=== PATIENT | female | born 1950 | race Hispanic/Latino ===

== ENCOUNTER 2022-05-06 23:44 | Inpatient (IN) | payer MEDICARE ==
[2022-05-07] MEDS ORDERED: SODIUM CHLORIDE 0.9% 1000 ML 1,000 ML IV ONE ×2 (03:21→04:43)
--- NOTE | 2022-05-07 03:26 | Emergency Department Report ---
ED Altered Mental Status HPI - General Chief Complaint: Altered Mental Status Stated Complaint: ALTERED MENTAL STATUES Time Seen by Provider: 05/07/22 02:52 Source: EMS Mode of arrival: Stretcher Limitations: Altered Mental Status - History of Present Illness Initial Comments: 72-year-old female with a history of Alzheimer brought in by EMS with altered mental status that was noticed after patient was found sitting on the toilet bowl for about 7 hours covered in feces. No fever or chills reported. Patient noted to be hypotensive on presentation. No other modifying or associated factors reported. MD Complaint: altered mental status - Related Data Allergies Allergy/AdvReac Type Severity Reaction Status Date / Time No Known Allergies Allergy Verified 05/07/22 02:32 ED Review of Systems ROS: Stated complaint: ALTERED MENTAL STATUES Other details as noted in HPI Comment: All other systems reviewed and negative Constitutional: weakness Neurological: confusion, other (Altered mental status change) ED Past Medical Hx - Social History Smoking Status: Never Smoker Substance Use Type: None ED Physical Exam - General Limitations: Altered Mental Status General appearance: alert, other (Dementia) - Head Head exam: Present: atraumatic, normal inspection - Eye Eye exam: Present: normal appearance Pupils: Present: normal accommodation - ENT ENT exam: Present: normal exam, normal orophraynx, mucous membranes moist - Neck Neck exam: Present: normal inspection. Absent: tenderness - Respiratory Respiratory exam: Present: normal lung sounds bilaterally. Absent: respiratory distress, accessory muscle use - Cardiovascular Cardiovascular Exam: Present: regular rate, normal rhythm, normal heart sounds, other (Hypertension) - GI/Abdominal GI/Abdominal exam: Present: soft, normal bowel sounds. Absent: distended, tenderness - Extremities Exam Extremities exam: Absent: tenderness, pedal edema - Back Exam Back exam: Absent: tenderness - Neurological Exam Neurological exam: Present: alert, other (Demented) - Skin Skin exam: Present: warm ED Course Vital Signs 05/07/22 05/07/22 05/07/22 00:28 00:30 00:49 Temperature Pulse Rate Respiratory Rate Blood Pressure 119/88 119/88 O2 Sat by Pulse 98 Oximetry 05/07/22 05/07/22 05/07/22 01:00 01:15 01:30 Temperature Pulse Rate 92 H 90 107 H Respiratory 15 21 23 Rate Blood Pressure 84/33 79/49 O2 Sat by Pulse 97 91 95 Oximetry 05/07/22 05/07/22 05/07/22 01:35 01:46 02:00 Temperature 98 F Pulse Rate 100 H 92 H 91 H Respiratory 12 19 18 Rate Blood Pressure 89/55 83/57 83/57 O2 Sat by Pulse 100 87 Oximetry 05/07/22 05/07/22 05/07/22 02:16 02:30 02:46 Temperature Pulse Rate 98 H 100 H 97 H Respiratory 23 12 20 Rate Blood Pressure 77/53 77/53 98/66 O2 Sat by Pulse 96 Oximetry 05/07/22 05/07/22 05/07/22 03:00 03:16 03:30 Temperature Pulse Rate 95 H 95 H 98 H Respiratory 12 15 19 Rate Blood Pressure 98/66 102/66 102/66 O2 Sat by Pulse Oximetry - Lab Data Result diagrams: 05/07/22 03:40 05/07/22 03:40 Lab Results 05/07/22 05/07/22 05/07/22 Range/Units 03:40 03:40 03:40 WBC 11.6 H (4.5-11.0) K/mm3 RBC 4.19 (3.65-5.03) M/mm3 Hgb 10.8 (10.1-14.3) gm/dl Hct 33.3 (30.3-42.9) % MCV 80 (79-97) fl MCH 26 L (28-32) pg MCHC 33 (30-34) % RDW 21.2 H (13.2-15.2) % Plt Count 168 (140-440) K/mm3 Lymph % (Auto) 9.5 L (13.4-35.0) % [place] % (Auto) 5.0 (0.0-7.3) % Eos % (Auto) 0.1 (0.0-4.3) % Baso % (Auto) 0.3 (0.0-1.8) % Lymph # (Auto) 1.1 L (1.2-5.4) K/mm3 [place] # (Auto) 0.6 (0.0-0.8) K/mm3 Eos # (Auto) 0.0 (0.0-0.4) K/mm3 Baso # (Auto) 0.0 (0.0-0.1) K/mm3 Seg Neutrophils % 85.1 H (40.0-70.0) % Seg Neutrophils # 9.9 H (1.8-7.7) K/mm3 PT 17.8 H (12.2-14.9) Sec. INR 1.31 H (0.87-1.13) APTT 26.2 (24.2-36.6) Sec. Sodium 133 L (137-145) mmol/L Potassium 4.7 (3.6-5.0) mmol/L Chloride 92.0 L (98-107) mmol/L Carbon Dioxide 15 L (22-30) mmol/L Anion Gap 31 mmol/L BUN 67 H (7-17) mg/dL Creatinine 5.1 H (0.6-1.2) mg/dL Estimated GFR 8 ml/min BUN/Creatinine Ratio 13 % Glucose 105 H (65-100) mg/dL Lactic Acid (0.7-2.0) mmol/L Calcium 9.9 (8.4-10.2) mg/dL Total Bilirubin 1.00 (0.1-1.2) mg/dL AST 70 H (5-40) units/L ALT 22 (7-56) units/L Alkaline Phosphatase 96 (35-129) units/L Ammonia (25-60) umol/L Total Protein 6.6 (6.3-8.2) g/dL Albumin 3.9 (3.9-5) g/dL Albumin/Globulin Ratio 1.4 % Urine Color (Yellow) Urine Turbidity (Clear) Specific [place] (Man) (1.003-1.030) Ur Protein (Man) (Negative) mg/dL Ur Ketones (Man) (Negative) Ur Nitrite (Man) (Negative) Urine Bilirubin (Man) (Negative) Urine Ictotest (Negative) Leukocyte Esterase (Man) (Negative) Urine WBC (Auto) (0.0-6.0) /HPF Urine RBC (Auto) (0.0-6.0) /HPF U Epithel Cells (Auto) (0-13.0) /HPF Urine Bacteria (Auto) (Negative) /HPF Urine RBC (Manual) (Negative) Hyaline Casts /LPF Granular Casts /LPF Urine Mucus /HPF Urine Yeast (Budding) /HPF 05/07/22 05/07/22 05/07/22 Range/Units 03:40 03:40 04:55 WBC (4.5-11.0) K/mm3 RBC (3.65-5.03) M/mm3 Hgb (10.1-14.3) gm/dl Hct (30.3-42.9) % MCV (79-97) fl MCH (28-32) pg MCHC (30-34) % RDW (13.2-15.2) % Plt Count (140-440) K/mm3 Lymph % (Auto) (13.4-35.0) % [place] % (Auto) (0.0-7.3) % Eos % (Auto) (0.0-4.3) % Baso % (Auto) (0.0-1.8) % Lymph # (Auto) (1.2-5.4) K/mm3 [place] # (Auto) (0.0-0.8) K/mm3 Eos # (Auto) (0.0-0.4) K/mm3 Baso # (Auto) (0.0-0.1) K/mm3 Seg Neutrophils % (40.0-70.0) % Seg Neutrophils # (1.8-7.7) K/mm3 PT (12.2-14.9) Sec. INR (0.87-1.13) APTT (24.2-36.6) Sec. Sodium (137-145) mmol/L Potassium (3.6-5.0) mmol/L Chloride (98-107) mmol/L Carbon Dioxide (22-30) mmol/L Anion Gap mmol/L BUN (7-17) mg/dL Creatinine (0.6-1.2) mg/dL Estimated GFR ml/min BUN/Creatinine Ratio % Glucose (65-100) mg/dL Lactic Acid 3.30 H* (0.7-2.0) mmol/L Calcium (8.4-10.2) mg/dL Total Bilirubin (0.1-1.2) mg/dL AST (5-40) units/L ALT (7-56) units/L Alkaline Phosphatase (35-129) units/L Ammonia 17.0 L (25-60) umol/L Total Protein (6.3-8.2) g/dL Albumin (3.9-5) g/dL Albumin/Globulin Ratio % Urine Color Brown (Yellow) Urine Turbidity Slightly cloudy (Clear) Specific [place] (Man) 1.025 (1.003-1.030) Ur Protein (Man) 1+ (Negative) mg/dL Ur Ketones (Man) Negative (Negative) Ur Nitrite (Man) Negative (Negative) Urine Bilirubin (Man) Color interference (Negative) Urine Ictotest Negative (Negative) Leukocyte Esterase (Man) Negative (Negative) Urine WBC (Auto) 5.0 (0.0-6.0) /HPF Urine RBC (Auto) 7.0 (0.0-6.0) /HPF U Epithel Cells (Auto) 8.0 (0-13.0) /HPF Urine Bacteria (Auto) 1+ (Negative) /HPF Urine RBC (Manual) 1+ (Negative) Hyaline Casts 9 /LPF Granular Casts 4 /LPF Urine Mucus 2+ /HPF Urine Yeast (Budding) 3+ /HPF - Medical Decision Making Here with AMS changes this is likely as a result of some kind of infection but can not rule out other differentials such pneumonia, urinary tract infection, m yocardial infarction, cerebrovascular accident, seizure/ postictal, liver or kidney failure, or systemic infection that leads to sepsis so in order to rule out the above we will go ahead and order routine labs that includes CBC, CMP, urinalysis, CT scan of the brain, lactic acid, chest x-ray, EKG and troponin. In the meantime we will go ahead and start IV hydration considering hypotension while waiting for the above labs. Lab reviewed --and noted with elevated lactic acid with hypotension, l eukocytosis even though no sources at this point this patient is septic so will continue with the protocol-- Dr Choi the hospitalist online journalist consulted who accept pt for further evaluation and treatment-- Critical care attestation.: If time is entered above; I have spent that time in minutes in the direct care of this critically ill patient, excluding procedure time. ED Disposition Clinical Impression: AMS (altered mental status) Qualifiers: Altered mental status type: unspecified Qualified Code(s): R41.82 - Altered mental status, unspecified Hypotension Qualifiers: Hypotension type: unspecified hypotension type Qualified Code(s): I95.9 - Hypotension, unspecified Sepsis Qualifiers: Sepsis type: sepsis due to unspecified organism Sepsis acute organ dysfunction status: unspecified Qualified Code(s): A41.9 - Sepsis, unspecified organism Disposition: 09 ADMITTED INPATIENT Is pt being admited?: Yes Does the pt Need Aspirin: No Condition: Stable Time of Disposition: 05:25
--- NOTE | 2022-05-07 03:55 | XRay Report ---
CHEST 1 VIEW INDICATION / CLINICAL INFORMATION: Altered Mental Status. COMPARISON: None available. FINDINGS: SUPPORT DEVICES: None. HEART / MEDIASTINUM: Heart size is normal. Tortuous thoracic aorta. LUNGS / PLEURA: There is a 13 mm round pulmonary opacity projecting within the right upper lobe possi austyn representing a lung mass. The remainder of the lungs are clear. No pulmonary edema or pleural eff usion noted. No pneumothorax. ADDITIONAL FINDINGS: No significant additional findings. IMPRESSION: 1. Right upper lobe 1.3 cm pulmonary opacity possibly representing lung mass. Chest CT is suggested. 2. No other significant finding. Signer Name: Su Garvin MD Signed: 05/07/2022 3:50 AM Workstation Name: [id number]
[2022-05-07 03:59] LABS: Basophils % (Auto) 0.3 % (0.0-1.8); Eosinophils % (Auto) 0.1 % (0.0-4.3); Hematocrit 33.3 % (30.3-42.9); Hemoglobin 10.8 gm/dl (10.1-14.3); Lymphocytes # (Auto) 1.1 K/mm3 (1.2-5.4); Lymphocytes % (Auto) 9.5 % (13.4-35.0); Mean Corpuscular HGB Conc 33 % (30-34); Mean Corpuscular Volume 80 fl (79-97); Monocytes # (Auto) 0.6 K/mm3 (0.0-0.8); Platelet Count 168 K/mm3 (140-440); Red Blood Count 4.19 M/mm3 (3.65-5.03)
[2022-05-07 04:00] LABS: Red Cell Distribution Width 21.2 % (13.2-15.2)
[2022-05-07 04:05] LABS: INR 1.31 (0.87-1.13)
[2022-05-07 04:06] LABS: Partial Thromboplastin Time 26.2 Sec. (24.2-36.6)
[2022-05-07 04:16] LABS: Albumin 3.9 g/dL (3.9-5); Calcium 9.9 mg/dL (8.4-10.2)
--- NOTE | 2022-05-07 04:19 | Cat Scan Report ---
CT head/brain wo con INDICATION / CLINICAL INFORMATION: Altered Mental Status. TECHNIQUE: Axial CT imaging of the brain was obtained without contrast. Coronal and sagittal reformatted imaging obtained and reviewed. All CT scans at this location are performed using CT dose reduction for ALAR A by means of automated exposure control. COMPARISON: None available. FINDINGS: No intracranial hemorrhage or midline shift is noted. No extra-axial fluid collection. There is large area of edema throughout the right occipital lobe. The appearance is most suggestive o f a subacute CVA. However underlying mass with surrounding edema is not entirely excluded and further evaluation with MRI is recommended. Ventricular system and basilar cisterns are unremarkable. There is old infarct within the right thala mus as well as several lacunar infarcts throughout the right basal ganglia. Visualized paranasal sinuses and mastoid air cells are well aerated and clear. No calvarial abnormali ty. IMPRESSION: 1. Large area of edema noted throughout the right occipital lobe most likely representing subacute CV A. Edema due to underlying mass is thought to be much less likely but should be confirmed with MRI. 2. Old lacunar infarcts within the right basal ganglia and right thalamus. Signer Name: Su Garvin MD Signed: 05/07/2022 4:14 AM Workstation Name: [id number]
[2022-05-07] MEDS ORDERED: CEFEPIME/NS 2 GM/100 ML 2 GM/100 ML BAG IV ONE (04:42)
[2022-05-07 05:03] LABS: Color,Urine Brown (Yellow)
[2022-05-07 05:08] LABS: Bacteria,Urine 1+ /HPF (Negative); Granular Casts,Urine 4 /LPF; Hyaline Casts,Urine 9 /LPF; Ictotest,Urine Negative (Negative); Mucus,Urine 2+ /HPF
[2022-05-07 05:15] LABS: Amphetamine Screen,Urine PRESUMPTIVE NEGATIVE; Benzodiazepines Screen,Urine PRESUMPTIVE NEGATIVE; Cannabinoid Screen,Urine PRESUMPTIVE NEGATIVE; Cocaine Screen,Urine PRESUMPTIVE NEGATIVE; Methadone Screen,Urine PRESUMPTIVE NEGATIVE; Opiate Screen,Urine PRESUMPTIVE NEGATIVE
[2022-05-07] MEDS ORDERED: ACETAMINOPHEN 325 MG TAB PO PRN ×2 (05:25→05:31)
[2022-05-07] MEDS ORDERED: ONDANSETRON 4 MG/2 ML INJ IV PRN ×2 (05:25→05:31)
[2022-05-07] MEDS ORDERED: MORPHINE 2 MG/1 ML INJ IV PRN (05:31)
[2022-05-07] MEDS ORDERED: MORPHINE 4 MG/1 ML INJ IV PRN (05:31)
[2022-05-07] MEDS ORDERED: ALBUTEROL 2.5 MG/3 ML NEBU IH PRN (05:31)
--- NOTE | 2022-05-07 05:38 | History and Physical Report ---
History of Present Illness Date of examination: 05/07/22 Date of admission: 05/07/22 Chief complaint: Altered mental status History of present illness: 72-year-old female with a history of Alzheimer dementia and most likely chronic kidney disease was brought in by EMS with altered mental status that was noticed after patient was found sitting on the toilet bowl for about 7 hours covered in feces. No fever or chills reported. Patient noted to be hypotensive on p resentation. No other modifying or associated factors reported. In the emergency room patient is found to have BUN of 67, creatinine 5.1, lactic acid 3.30, WBC 11.6, CT scan of the head shows large area of edema noted throughout the right occipital lobe most likely representing subacute CVA. [place] a due to underlying mass is thought to be much less likely but should be confirmed with MRI. Old lacunar infarct within the right basal ganglia and right thalamus. Chest x-ray shows right upper lobe 1.3 cm pulmonary opacity possibly representing lung mass. Chest CT is suggested. Past History Past Medical History: renal failure (Allergy med dementia), other Past Surgical History: No surgical history Social history: no significant social history Family history: hypertension Medications and Allergies Allergies Allergy/AdvReac Type Severity Reaction Status Date / Time No Known Allergies Allergy Verified 05/07/22 02:32 Active Meds: Active Medications Acetaminophen (Acetaminophen 325 Mg Tab) 650 mg PO Q4H PRN PRN Reason: Pain MILD(1-3)/Fever >100.5/ROSAS Acetaminophen (Acetaminophen 325 Mg Tab) 650 mg PO Q4H PRN PRN Reason: Pain MILD(1-3)/Fever >100.5/ROSAS Albuterol (Albuterol 2.5 Mg/3 Ml Nebu) 2.5 mg IH Q3HRT PRN PRN Reason: Shortness Of Breath Albuterol/Ipratropium (Ipratropium/Albuterol Sulfate 3 Ml Ampul.Neb) 1 ampul IH Q6HRT RIKI Famotidine (Famotidine 20 Mg/2 Ml Inj) 20 mg IV BID RIKI Sodium Chloride (Nacl 0.9% 1000 Ml) 1,000 mls @ 999 mls/hr IV BOLUS ONE Stop: 05/07/22 05:43 Last Admin: 05/07/22 05:00 Dose: 999 mls/hr Sodium Chloride (Nacl 0.9% 1000 Ml) 1,000 mls @ 125 mls/hr IV DIRECT RIKI Cefepime HCl (Cefepime/Ns 2 Gm/100 Ml) 2 gm in 100 mls @ 200 mls/hr IV Q8H RIKI; Protocol Morphine Sulfate (Morphine 2 Mg/1 Ml Inj) 2 mg IV Q4H PRN PRN Reason: Pain, Moderate (4-6) Morphine Sulfate (Morphine 2 Mg/1 Ml Inj) 2 mg IV Q4H PRN PRN Reason: Pain, Moderate (4-6) Morphine Sulfate (Morphine 4 Mg/1 Ml Inj) 4 mg IV Q4H PRN PRN Reason: Pain , Severe (7-10) Ondansetron HCl (Ondansetron 4 Mg/2 Ml Inj) 4 mg IV Q8H PRN PRN Reason: Nausea And Vomiting Ondansetron HCl (Ondansetron 4 Mg/2 Ml Inj) 4 mg IV Q8H PRN PRN Reason: Nausea And Vomiting Sodium Chloride (Sodium Chloride 0.9% 10 Ml Flush Syringe) 10 ml IV BID RIKI Sodium Chloride (Sodium Chloride 0.9% 10 Ml Flush Syringe) 10 ml IV PRN PRN PRN Reason: LINE FLUSH Sodium Chloride (Sodium Chloride 0.9% 10 Ml Flush Syringe) 10 ml IV BID RIKI Sodium Chloride (Sodium Chloride 0.9% 10 Ml Flush Syringe) 10 ml IV PRN PRN PRN Reason: LINE FLUSH Review of Systems All systems: negative Constitutional: fatigue, weakness, malaise, other (Altered mental status) Exam - Constitutional Vitals: Temp Pulse Resp BP Pulse Ox 98 F 98 H 19 102/66 96 05/07/22 01:35 05/07/22 03:30 05/07/22 03:30 05/07/22 03:30 05/07/22 02:46 General appearance: Present: no acute distress, well-nourished - EENT Eyes: Present: PERRL ENT: hearing intact, clear oral mucosa - Neck Neck: Present: supple, normal ROM - Respiratory Respiratory effort: normal Respiratory: bilateral: CTA - Cardiovascular Heart Sounds: Present: S1 & S2. Absent: rub, click - Extremities Extremities: pulses symmetrical, No edema Peripheral Pulses: within normal limits - Abdominal General gastrointestinal: Present: soft, non-tender, non-distended, normal bowel sounds Female genitourinary: Present: normal - Integumentary Integumentary: Present: clear, warm, dry - Musculoskeletal Musculoskeletal: gait normal, strength equal bilaterally - Neurologic Neurologic: CNII-XII intact, moves all extremities Results - Labs CBC & Chem 7: 05/07/22 03:40 05/07/22 03:40 Labs: Laboratory Last Values WBC 11.6 K/mm3 (4.5-11.0) H 05/07/22 03:40 RBC 4.19 M/mm3 (3.65-5.03) 05/07/22 03:40 Hgb 10.8 gm/dl (10.1-14.3) 05/07/22 03:40 Hct 33.3 % (30.3-42.9) 05/07/22 03:40 MCV 80 fl (79-97) 05/07/22 03:40 MCH 26 pg (28-32) L 05/07/22 03:40 MCHC 33 % (30-34) 05/07/22 03:40 RDW 21.2 % (13.2-15.2) H 05/07/22 03:40 Plt Count 168 K/mm3 (140-440) 05/07/22 03:40 Lymph % (Auto) 9.5 % (13.4-35.0) L 05/07/22 03:40 [place] % (Auto) 5.0 % (0.0-7.3) 05/07/22 03:40 Eos % (Auto) 0.1 % (0.0-4.3) 05/07/22 03:40 Baso % (Auto) 0.3 % (0.0-1.8) 05/07/22 03:40 Lymph # (Auto) 1.1 K/mm3 (1.2-5.4) L 05/07/22 03:40 [place] # (Auto) 0.6 K/mm3 (0.0-0.8) 05/07/22 03:40 Eos # (Auto) 0.0 K/mm3 (0.0-0.4) 05/07/22 03:40 Baso # (Auto) 0.0 K/mm3 (0.0-0.1) 05/07/22 03:40 Seg Neutrophils % 85.1 % (40.0-70.0) H 05/07/22 03:40 Seg Neutrophils # 9.9 K/mm3 (1.8-7.7) H 05/07/22 03:40 PT 17.8 Sec. (12.2-14.9) H 05/07/22 03:40 INR 1.31 (0.87-1.13) H 05/07/22 03:40 APTT 26.2 Sec. (24.2-36.6) 05/07/22 03:40 Sodium 133 mmol/L (137-145) L 05/07/22 03:40 Potassium 4.7 mmol/L (3.6-5.0) 05/07/22 03:40 Chloride 92.0 mmol/L (98-107) L 05/07/22 03:40 Carbon Dioxide 15 mmol/L (22-30) L 05/07/22 03:40 Anion Gap 31 mmol/L 05/07/22 03:40 BUN 67 mg/dL (7-17) H 05/07/22 03:40 Creatinine 5.1 mg/dL (0.6-1.2) H 05/07/22 03:40 Estimated GFR 8 ml/min 05/07/22 03:40 BUN/Creatinine Ratio 13 % 05/07/22 03:40 Glucose 105 mg/dL (65-100) H 05/07/22 03:40 Lactic Acid 3.30 mmol/L (0.7-2.0) H* 05/07/22 03:40 Calcium 9.9 mg/dL (8.4-10.2) 05/07/22 03:40 Total Bilirubin 1.00 mg/dL (0.1-1.2) 05/07/22 03:40 AST 70 units/L (5-40) H 05/07/22 03:40 ALT 22 units/L (7-56) 05/07/22 03:40 Alkaline Phosphatase 96 units/L (35-129) 05/07/22 03:40 Ammonia 17.0 umol/L (25-60) L 05/07/22 03:40 Total Protein 6.6 g/dL (6.3-8.2) 05/07/22 03:40 Albumin 3.9 g/dL (3.9-5) 05/07/22 03:40 Albumin/Globulin Ratio 1.4 % 05/07/22 03:40 Urine Color Brown (Yellow) 05/07/22 04:55 Urine Turbidity Slightly cloudy (Clear) 05/07/22 04:55 Specific [place] (Man) 1.025 (1.003-1.030) 05/07/22 04:55 Ur Protein (Man) 1+ mg/dL (Negative) 05/07/22 04:55 Ur Ketones (Man) Negative (Negative) 05/07/22 04:55 Ur Nitrite (Man) Negative (Negative) 05/07/22 04:55 Urine Bilirubin (Man) Color interference (Negative) 05/07/22 04:55 Urine Ictotest Negative (Negative) 05/07/22 04:55 Leukocyte Esterase (Man) Negative (Negative) 05/07/22 04:55 Urine WBC (Auto) 5.0 /HPF (0.0-6.0) 05/07/22 04:55 Urine RBC (Auto) 7.0 /HPF (0.0-6.0) 05/07/22 04:55 U Epithel Cells (Auto) 8.0 /HPF (0-13.0) 05/07/22 04:55 Urine Bacteria (Auto) 1+ /HPF (Negative) 05/07/22 04:55 Urine RBC (Manual) 1+ (Negative) 05/07/22 04:55 Hyaline Casts 9 /LPF 05/07/22 04:55 Granular Casts 4 /LPF 05/07/22 04:55 Urine Mucus 2+ /HPF 05/07/22 04:55 Urine Yeast (Budding) 3+ /HPF 05/07/22 04:55 - Imaging and Cardiology Chest x-ray: report reviewed CT scan - chest: report reviewed Assessment and Plan VTE prophylaxis?: Mechanical Plan of care discussed with patient/family: Yes - Patient Problems (1) CVA (cerebral vascular accident) Current Visit: Yes Status: Acute Plan to address problem: Admit the patient to the medical telemetry. Aspirin 81 mg p.o. daily. Lipitor 40 mg p.o. daily. PT OT speech evaluation. MRI of the brain and MRA of the brain and neck with and without contrast. Neurology evaluation (2) Acute metabolic encephalopathy Current Visit: Yes Status: Acute Plan to address problem: Most likely secondary to CVA and FRANTZ. We will monitor the patient closely. Oxygen by nasal cannula 3 L/min. DuoNeb via nebulizer every 4 hours as needed. IV fluid normal saline at the rate of 125 cc/h. We will monitor the patient closely. Neurology evaluation (3) FRANTZ (acute kidney injury) Current Visit: Yes Status: Acute Plan to address problem: Avoid nephrotoxic drug. Renally dose medication. Normal saline at the rate of 125 cc/h. Nephrology evaluation. Recheck BMP in the morning (4) Alzheimer's dementia Current Visit: Yes Status: Acute Plan to address problem: We will monitor the patient closely. We continue the home medication aspirin 81 mg p.o. daily. Lipitor 40 mg p.o. daily. MRI of the brain. Neurology evaluati on (5) Hypotension Current Visit: Yes Status: Acute Qualifiers: Hypotension type: unspecified hypotension type Qualified Code(s): I95.9 - Hypotension, unspecified Plan to address problem: Normal saline at the rate of 125 cc/h. Cefepime 2 g IV daily. We will do the blood culture urine culture. We will monitor the patient closely (6) Sepsis Current Visit: Yes Status: Acute Qualifiers: Sepsis type: sepsis due to unspecified organism Sepsis acute organ dysfunction status: unspecified Qualified Code(s): A41.9 - Sepsis, unspecified organism Plan to address problem: Normal saline at the rate of 125 cc/h. Cefepime 2 g IV daily. We will do the blood culture urine culture. We will monitor the patient closely (7) DVT prophylaxis Current Visit: Yes Status: Acute Plan to address problem: SCD for DVT prophylaxis. Pepcid 20 mg IV every 12 hours for GI prophylaxis. Patient is a full code
[2022-05-07] MEDS ORDERED: SODIUM CHLORIDE 0.9% 1000 ML 1,000 ML IV SCH (05:45)
[2022-05-07 06:38] LABS: Chol/HDL Ratio 6.11 %
[2022-05-07] MEDS: IPRATROPIUM/ALBUTEROL SULFATE 3 ML AMPUL.NEB IH SCH ×3 (08:42→22:56)
--- NOTE | 2022-05-07 08:56 | Consultation ---
History of Present Illness Consult date: 05/07/22 Reason for Consult: CVA Chief complaint: AMS History of present illness: 72 yo female with Alzheimer's dementia, ?ckdx, who presents with acute encephalopathy (found at home, sitting on toilet bowl, covered in feces) and hypotension. NCHCT revealed possible right occipital subacute infarct and CXR revealed the possibility of a lung mass. Labs revealed mild leukocytosis with lactic acidosis and a Cr of 5.1. Past History Past Medical History: renal failure (Allergy med dementia), other (see hpi;) Past Surgical History: No surgical history Social history: no significant social history Family history: hypertension Medications and Allergies Allergies Allergy/AdvReac Type Severity Reaction Status Date / Time No Known Allergies Allergy Verified 05/07/22 02:32 Active Meds: Active Medications Acetaminophen (Acetaminophen 325 Mg Tab) 650 mg PO Q4H PRN PRN Reason: Pain MILD(1-3)/Fever >100.5/ROSAS Albuterol (Albuterol 2.5 Mg/3 Ml Nebu) 2.5 mg IH Q3HRT PRN PRN Reason: Shortness Of Breath Albuterol/Ipratropium (Ipratropium/Albuterol Sulfate 3 Ml Ampul.Neb) 1 ampul IH Q6HRT RIKI Aspirin (Aspirin 81 Mg Tab Chew) 81 mg PO QDAY RIKI Atorvastatin Calcium (Atorvastatin 40 Mg Tab) 40 mg PO QHS RIKI Famotidine (Famotidine 20 Mg/2 Ml Inj) 20 mg IV QAM RIKI Sodium Chloride (Nacl 0.9% 1000 Ml) 1,000 mls @ 125 mls/hr IV DIRECT RIKI Cefepime HCl (Cefepime/Ns 2 Gm/100 Ml) 2 gm in 100 mls @ 200 mls/hr IV Q24HR RIIK; Protocol Morphine Sulfate (Morphine 2 Mg/1 Ml Inj) 2 mg IV Q4H PRN PRN Reason: Pain, Moderate (4-6) Morphine Sulfate (Morphine 4 Mg/1 Ml Inj) 4 mg IV Q4H PRN PRN Reason: Pain , Severe (7-10) Ondansetron HCl (Ondansetron 4 Mg/2 Ml Inj) 4 mg IV Q8H PRN PRN Reason: Nausea And Vomiting Sodium Chloride (Sodium Chloride 0.9% 10 Ml Flush Syringe) 10 ml IV PRN PRN PRN Reason: LINE FLUSH Sodium Chloride (Sodium Chloride 0.9% 10 Ml Flush Syringe) 10 ml IV BID RIKI Review of Systems ROS unobtainable: due to mental status All systems: negative (as per hpi;) Physical Examination - Vital Signs Vital Signs: Vital Signs Pulse Ox 98 05/07/22 00:28 - Physical Exam Narrative exam: Gen: nad; Head: normocephalic; Eyes: right gaze deviation; no ptosis; ENT: normal vocalization; CVS: warm and well-perfused; Pulm: normal work of breathing; GI: appears non-distended; Ext: no cyanosis appreciated at distal extremities; MSkeletal: decreased ROM at right arm/leg (compared to left arm/leg) due to pain; Skin: no acute rash at distal extremities; Heme: +ecchymoses appreciated at distal extremities; Neuro: somnolent, oriented to name, not age, not month, not year, no dysarthria, ?mild aphasia (follows simple commands only), CN 2 - pt is not cooperative w/ pupillary exam; left visual field (less blink to threat compared to right; o/w pt is not cooperative); ?left visual neglect; CN 3, 4, 6 - right gaze deviation, CN 5/7 - open / close eyes spontaneously; CN 8 - hearing grossly intact, CN 9, 10 - no spontaneous cought noted, CN 11/12 - pt is not cooperative; Motor - at least 3/5 at left arm/leg; at least 2/5 right arm/leg but limited by pain; Sensory - light touch symmetric, Cerebellar/Gait - pt is not able to cooperate; NIHSS (1a.) Level of Consciousness:0 (1b.) LOC Questions: 0 (1c.) LOC Commands: 1 (2.) Best Gaze:2 (3.) Visual:1 (4.) Facial Palsy:0 (5a.) Motor Arm, Left:3 (5b.) Motor Arm, Right:3 (6a.) Motor Leg, Left:3 (6b.) Motor Leg, Right:3 (7.) Limb Ataxia:0 (8.) Sensory:0 (9.) Best Language:1 (10.) Dysarthria:0 (11.) Extinction and Inattention:2 NIHSS Total Score: 19 Results - Laboratory Findings CBC and BMP: 05/07/22 03:40 05/07/22 03:40 Abnormal Lab Findings: Abnormal Labs 05/07/22 05/07/22 05/07/22 03:40 03:40 03:40 WBC 11.6 H MCH 26 L RDW 21.2 H Lymph % (Auto) 9.5 L Lymph # (Auto) 1.1 L Seg Neutrophils % 85.1 H Seg Neutrophils # 9.9 H PT 17.8 H INR 1.31 H Sodium 133 L Chloride 92.0 L Carbon Dioxide 15 L BUN 67 H Creatinine 5.1 H Glucose 105 H Lactic Acid AST 70 H Ammonia Triglycerides Cholesterol HDL Cholesterol 05/07/22 05/07/22 05/07/22 03:40 03:40 05:50 WBC MCH RDW Lymph % (Auto) Lymph # (Auto) Seg Neutrophils % Seg Neutrophils # PT INR Sodium Chloride Carbon Dioxide BUN Creatinine Glucose Lactic Acid 3.30 H* 2.60 H* AST Ammonia 17.0 L Triglycerides Cholesterol HDL Cholesterol 05/07/22 06:00 WBC MCH RDW Lymph % (Auto) Lymph # (Auto) Seg Neutrophils % Seg Neutrophils # PT INR Sodium Chloride Carbon Dioxide BUN Creatinine Glucose Lactic Acid AST Ammonia Triglycerides 344 H Cholesterol 220 H HDL Cholesterol 36 L Assessment and Plan 72 yo female with Alzheimer's dementia, ?ckdx, who presents with acute encephalopathy (found at home, sitting on toilet bowl, covered in feces) and hypotension. NCHCT revealed possible right occipital subacute infarct and CXR revealed the possibility of a lung mass. Labs revealed mild leukocytosis with lactic acidosis and a Cr of 5.1. 1. Acute Ischemic Stroke: [ASA 325 mg PO qday, MRI Brain w/ wo contrast, MRA Head w/o contrast, CUS, TTEcho (CESAR if TTE is unremarkable, unless pt has a secondary hypercoaguable state (see #2 below), confirm LDL/TSH/Covid-19/UDS, telemetry, NIHSS q4 hours; SBP goal 160-200 mmHg and DBP 80-100 mmHg for now. Statin therapy for a goal LDL of 70, when patient passes swallow evaluation. PT/OT/ST/Swallow evaluation. Long-term risk-factor modification, including a strict diet/exercise regimen for secondary stroke prophylaxis. Stroke education prior to discharge. Followup with Stroke Neurology in 4-6 weeks. 2. Lung Mass - awaiting ct chest; if positive, concern for a secondary hypercoaguable state as contributing to the patient's stroke. 3. Acute Metabolic Encephalopathy - in the setting of acute kidney injury; r/o metabolic / toxic / infectious etiologies, per primary team. 4. Subclinical Seizure(s) - recommend EEG when admitted to the hospital; if epileptiform discharges noted, recommend keppra 500 mg iv/po bid or vimpat 50 mg iv/po bid. 5. Left Hemiparesis - pt/ot evaluation/monitoring. 6. Left Hemianopsia / Right Gaze Deviatioin - low vision OT evaluation / monitoring. 7. Right Arm / Leg Pain / ?Fall - concern is raised for a possible fall based on pain with movement of the right arm/leg; communicated to RN to let the primary attending be aware for need for a c-collar and possible trauma protocol. 8. Alzheimer's Dementia - ordered b12, tsh, thiamine, prealbumin levels Rj Ross MD Neurology [id number]
--- NOTE | 2022-05-07 09:35 | Electrocardiograph Report ---
[facility] Test Date: 2022-05-07 Test Time: 06:16:51 Pat Name: MICKI SAL Department: Room: [place] [address] Gender: F [employer] Drawer: BRIA : 1950 Requested By: EVANS SPEARS Order Number: [id number] Reading MD: Leandro Islas Measurements Intervals Rex Rate: 102 P: MN: QRS: -65 QRSD: 87 T: 14 QT: 370 QTc: 482 Interpretive Statements Atrial fibrillation Left anterior fascicular block poor r wave progression nonspecific st-t No previous ECG available for comparison Electronically Signed On 05-07-2022 9:35:19 EDT by Leandro Islas
[2022-05-07] MEDS ORDERED: CEFEPIME/NS 2 GM/100 ML 2 GM/100 ML BAG IV SCH (10:00)
[2022-05-07] MEDS: ASPIRIN 81 MG TAB CHEW PO SCH (10:39)
[2022-05-07] MEDS: FAMOTIDINE 20 MG/2 ML INJ IV SCH (10:39)
--- NOTE | 2022-05-07 11:12 | Consultation ---
History of Present Illness - Reason for Consult Consult date: 05/07/22 acute renal failure - History of Present Illness This is a 72 year old female who presents to the hospital for ev aluation of AMS. On evaluation in E.R patient found to be Hypotensive with SBP in the 70-80's and pertinent labs revealed an elevated serum creatinine of 5.1 and BUN of 67. Baseline serum creatinine unknown. CT scan of head showed edema throughout occipital lobe suggesting subacute CVA and CXR shows lung mass otherwise lungs are clear. We are being consulted for management of this patient's Severe Renal Failure. Past History Past Medical History: renal failure (Allergy med dementia), other (see hpi;) Past Surgical History: No surgical history Social history: no significant social history Family history: hypertension Medications and Allergies Allergies Allergy/AdvReac Type Severity Reaction Status Date / Time No Known Allergies Allergy Verified 05/07/22 02:32 Active Meds: Active Medications Acetaminophen (Acetaminophen 325 Mg Tab) 650 mg PO Q4H PRN PRN Reason: Pain MILD(1-3)/Fever >100.5/ROSAS Albuterol (Albuterol 2.5 Mg/3 Ml Nebu) 2.5 mg IH Q3HRT PRN PRN Reason: Shortness Of Breath Albuterol/Ipratropium (Ipratropium/Albuterol Sulfate 3 Ml Ampul.Neb) 1 ampul IH Q6HRT [facility] Last Admin: 05/07/22 08:42 Dose: 1 ampul Aspirin (Aspirin 81 Mg Tab Chew) 81 mg PO QDAY [facility] Last Admin: 05/07/22 10:39 Dose: Not Given Atorvastatin Calcium (Atorvastatin 40 Mg Tab) 40 mg PO QHS [facility] Famotidine (Famotidine 20 Mg/2 Ml Inj) 20 mg IV QAM [facility] Last Admin: 05/07/22 10:39 Dose: 20 mg Sodium Chloride (Nacl 0.9% 1000 Ml) 1,000 mls @ 125 mls/hr IV DIRECT RIKI Cefepime HCl (Cefepime/Ns 1 Gm/100 Ml) 1 gm in 100 mls @ 200 mls/hr IV Q24H RIKI; Protocol Morphine Sulfate (Morphine 2 Mg/1 Ml Inj) 2 mg IV Q4H PRN PRN Reason: Pain, Moderate (4-6) Morphine Sulfate (Morphine 4 Mg/1 Ml Inj) 4 mg IV Q4H PRN PRN Reason: Pain , Severe (7-10) Ondansetron HCl (Ondansetron 4 Mg/2 Ml Inj) 4 mg IV Q8H PRN PRN Reason: Nausea And Vomiting Sodium Chloride (Sodium Chloride 0.9% 10 Ml Flush Syringe) 10 ml IV PRN PRN PRN Reason: LINE FLUSH Sodium Chloride (Sodium Chloride 0.9% 10 Ml Flush Syringe) 10 ml IV BID RIKI Last Admin: 05/07/22 10:39 Dose: 10 ml Review of Systems ROS unobtainable: due to mental status Exam - Vital Signs Vital signs: Vital Signs Pulse Ox 98 05/07/22 00:28 - General Appearance General appearance: other (No acute distress. Awake) EENT: ATNC Neck: Present: Other (neck in cervical collar) Respiratory: Decreased Breath Sounds Heart: S1S2 Gastrointestinal: Present: normoactive bowel sounds Integumentary: warm and dry, other (has erythema areas to skin on legs) Neurologic: other (Awake but not oriented to time or place) Musculoskeletal: Present: other (No edema) Results - Lab Results 05/07/22 03:40 05/07/22 03:40 Most recent lab results Calcium 9.9 mg/dL (8.4-10.2) 05/07/22 03:40 Assessment and Plan Assessment: Severe Renal Failure secondary to prerenal etiology vs ATN Sepsis Hypotension Altered Mental Status Acidosis CVA Plan: Renal labs reviewed. Serum creatinine 5.1 with BUN 67 noted on admission Baseline serum creatinine unknown Obtain renal ultrasound to rule out obstruction Obtain urine lytes protein and eosinophils CXR-lung mass otherwise clear On NS@ 125 ml/hr Avoid nephrotoxic agents Obtain daily weights Renally dose medications Monitor I/O's daily Monitor renal function closely Plan of care reviewed by Dr. Muller
--- NOTE | 2022-05-07 11:38 | XRay Report ---
CT CERVICAL SPINE SPINE WITHOUT CONTRAST INDICATION: Fall, neck pain. TECHNIQUE: Axial imaging performed through the cervical spine without the use of contrast. Sagittal and coronal reconstructed images were also reviewed. All CT scans at this location are performed us ing CT dose reduction for ALARA by means of automated exposure control. COMPARISON: None FINDINGS: Alignment: There is poor positioning of the patient. 3 mm anterolisthesis of C4 with respect to C5 i s evident. There is 2 mm anterolisthesis of C7 with respect to T1. Bones: There is no acute osseous abnormality. Mild multilevel degenerative disc disease and facet a rthropathy is present throughout the cervical spine. C6-7 appears to be the most affected level. No c entral canal stenosis is suspected. No suspicious bony lesion. Soft tissues: Small amount of pneumomediastinum is seen near the thoracic inlet. The etiology of thi s is not clearly evident. IMPRESSION: No evidence for acute injury of the cervical spine. Moderate multilevel cervical spondylosis as described. Pneumomediastinum is identified near the thoracic inlet is uncertain origin. Consider further evaluat ion with CT chest preferably with IV contrast. LEFT FEMUR 2 VIEWS INDICATION: Pain after fall. COMPARISON: None. IMPRESSION: Osteopenia is suspected. No acute osseous or soft tissue abnormality. There is severe tricompartmental degenerative changes at the knee. LEFT ANKLE 2 VIEWS INDICATION: Pain after fall. COMPARISON: None. IMPRESSION: Osteopenia is suspected. No acute osseous abnormality or significant joint pathology. LEFT FOOT 2 VIEWS INDICATION: Pain after fall. COMPARISON: None. IMPRESSION: Osteopenia is suspected. No acute osseous injury is detected. Mild osteoarthritic terry es are noted in the midfoot. There is a small plantar spur. Signer Name: Marek Gorman Jr, MD Signed: 05/07/2022 11:34 AM Workstation Name: [id number]
--- NOTE | 2022-05-07 11:45 | Event Note ---
Date: 05/07/22 Patient seen and examined at the bedside. She is in a c-collar and currently only endorsing pain in the left leg and foot. She does not recall the events that transpired prior to admission. She lives at home with her adult son and was fully independent. Neurology has evaluated patient in recommendations noted. X-rays of the left lower extremity and CT of the cervical spine were negative for acute fracture and abnormalities. Initial CT of the head also reviewed. We will continue with further stroke work-up.
--- NOTE | 2022-05-07 16:37 | Ultrasound Report ---
ULTRASOUND RENAL INDICATION / CLINICAL INFORMATION: renal failure. COMPARISON: None available. FINDINGS: RIGHT KIDNEY: Length = 8.8 cm. - Echogenicity: Mildly echogenic. - Parenchymal Thickness: Normal. - Hydronephrosis: None. - Cyst / Mass: None. - Stones: None seen. LEFT KIDNEY: Length = 7.6 cm. - Echogenicity: Mildly echogenic. - Parenchymal Thickness: Mild thinning. - Hydronephrosis: None. - Cyst / Mass: None. - Stones: None seen. URINARY BLADDER: Partially collapsed. No significant abnormality identified. FREE FLUID: None. ADDITIONAL FINDINGS: Incidental finding of a small amount of sludge in the gallbladder. IMPRESSION: 1. No acute sonographic abnormality. 2. The kidneys measure small with findings suggestive of medical renal disease bilaterally. No eviden ce of solid renal mass or hydronephrosis. 3. Small amount of sludge noted in the gallbladder without acute abnormality. Scribed by: Veronica Durand RDMS, SRI, SARAH Scribed: 05/07/2022 3:31 PM I have reviewed the images, agree with this report, and edited this report as needed. Signer Name: Fazal Liu MD Signed: 05/07/2022 4:33 PM Workstation Name: [email or web address]
[2022-05-07] MEDS: MORPHINE 2 MG/1 ML INJ IV PRN (21:13)
[2022-05-08 06:02] LABS: Basophils % (Auto) 0.1 % (0.0-1.8); Hematocrit 29.8 % (30.3-42.9); Hemoglobin 9.7 gm/dl (10.1-14.3); Lymphocytes # (Auto) 0.7 K/mm3 (1.2-5.4); Lymphocytes % (Auto) 6.7 % (13.4-35.0); Mean Corpuscular HGB Conc 33 % (30-34); Mean Corpuscular Volume 80 fl (79-97); Monocytes # (Auto) 0.4 K/mm3 (0.0-0.8); Monocytes % (Auto) 4.1 % (0.0-7.3); Platelet Count 126 K/mm3 (140-440); Red Blood Count 3.72 M/mm3 (3.65-5.03)
[2022-05-08 06:03] LABS: Red Cell Distribution Width 21.4 % (13.2-15.2)
[2022-05-08 06:27] LABS: Calcium 9.2 mg/dL (8.4-10.2)
--- NOTE | 2022-05-08 09:33 | Progress Note ---
Assessment and Plan Assessment and plan: (1) Acute CVA (cerebral vascular accident) Current Visit: Yes Status: Acute Plan to address problem: Aspirin 81 mg p.o. daily. Lipitor 40 mg p.o. daily. PT OT speech evaluation. MRI of the brain and MRA of the brain and rest of neuro work-up Work-up so far: CT head without contrast;Large area of edema noted throughout the right occipital lobe most likely representing subacute CVA Old lacunar infarctions within the right basal ganglia and right thalamus MRI of the brainLarge acute to subacute ischemic infarct at the right [employer] distribution volume loss, chronic ischemic changes and white matter MRA; brain; Occluded right posterior cerebral artery correlates with the area of ischemia seen on MRI brain Echocardiogram Chest x-ray Renal ultrasound CT cervical spine Ankle x-ray Femur x-ra;yOsteopenia suspected no acute osseous or soft tissue abnormality severe tricompartmental degenerative changes at the knee Foot x-ray work-up so far (2) Acute metabolic encephalopathy Current Visit: Yes Status: Acute Plan to address problem: Most likely secondary to CVA and FRANTZ. We will monitor the patient closely. Oxygen by nasal cannula 3 L/min. DuoNeb via nebulizer every 4 hours as needed. IV fluid normal saline at the rate of 125 cc/h. We will monitor the patient closely. Neurology evaluation (3) FRANTZ (acute kidney injury) Current Visit: Yes Status: Acute Plan to address problem: Avoid nephrotoxic drug. Renally dose medication. Normal saline at the rate of 125 cc/h. Nephrology evaluation. Recheck BMP in the morning (4) Alzheimer's dementia Current Visit: Yes Status: Acute Plan to address problem: We will monitor the patient closely. We continue the home medication aspirin 81 mg p.o. daily. Lipitor 40 mg p.o. daily. MRI of the brain. Neurology evaluation (5) Hypotension Current Visit: Yes Status: Acute Qualifiers: Hypotension type: unspecified hypotension type Qualified Code(s): I95.9 - Hypotension, unspecified Plan to address problem: Normal saline at the rate of 125 cc/h. Cefepime 2 g IV daily. We will do the blood culture urine culture. We will monitor the patient closely (6) Sepsis Current Visit: Yes Status: Acute Qualifiers: Sepsis type: sepsis due to unspecified organism Sepsis acute organ dysfunction status: unspecified Qualified Code(s): A41.9 - Sepsis, unspecified organism Plan to address problem: Normal saline at the rate of 125 cc/h. Cefepime 2 g IV daily. We will do the blood culture urine culture. We will monitor the patient closely (7) DVT prophylaxis Current Visit: Yes Status: Acute Plan to address problem: SCD for DVT prophylaxis. Pepcid 20 mg IV every 12 hours for GI prophylaxis. Patient is a full code Closely monitor the patient and adjust management as needed Plan of care reviewed with the patient and her nurse Health Safety Specialist recommendations noted and appreciated History Interval history: I have seen and examined the patient at the bedside Patient's chart and medications reviewed Patient feels slightly better Neuro work-up is in progress Vital signs noted Hospitalist Physical - Constitutional Vitals: Temp Pulse Resp BP Pulse Ox 98.3 F 82 18 105/61 98 05/08/22 07:44 05/08/22 07:44 05/08/22 03:46 05/08/22 07:44 05/08/22 09:05 General appearance: Present: no acute distress, well-nourished - EENT Eyes: Present: PERRL, EOM intact - Neck Neck: Present: supple, normal ROM - Respiratory Respiratory: bilateral: diminished, negative: rales, rhonchi, wheezing - Cardiovascular Rhythm: regular Heart Sounds: Present: S1 & S2 - Extremities Extremities: no ischemia, No edema - Abdominal General gastrointestinal: soft, non-tender, non-distended, normal bowel sounds - Integumentary Integumentary: Present: clear, warm - Psychiatric Psychiatric: cooperative - Neurologic Neurologic: other (Acute CVA with residual weakness) Results - Labs CBC & Chem 7: 05/08/22 05:35 05/08/22 04:00 Labs: Laboratory Last Values WBC 10.6 K/mm3 (4.5-11.0) 05/08/22 05:35 RBC 3.72 M/mm3 (3.65-5.03) 05/08/22 05:35 Hgb 9.7 gm/dl (10.1-14.3) L 05/08/22 05:35 Hct 29.8 % (30.3-42.9) L 05/08/22 05:35 MCV 80 fl (79-97) 05/08/22 05:35 MCH 26 pg (28-32) L 05/08/22 05:35 MCHC 33 % (30-34) 05/08/22 05:35 RDW 21.4 % (13.2-15.2) H 05/08/22 05:35 Plt Count 126 K/mm3 (140-440) L 05/08/22 05:35 Lymph % (Auto) 6.7 % (13.4-35.0) L 05/08/22 05:35 Charlton % (Auto) 4.1 % (0.0-7.3) 05/08/22 05:35 Eos % (Auto) 0.0 % (0.0-4.3) 05/08/22 05:35 Baso % (Auto) 0.1 % (0.0-1.8) 05/08/22 05:35 Lymph # (Auto) 0.7 K/mm3 (1.2-5.4) L 05/08/22 05:35 Charlton # (Auto) 0.4 K/mm3 (0.0-0.8) 05/08/22 05:35 Eos # (Auto) 0.0 K/mm3 (0.0-0.4) 05/08/22 05:35 Baso # (Auto) 0.0 K/mm3 (0.0-0.1) 05/08/22 05:35 Seg Neutrophils % 89.1 % (40.0-70.0) H 05/08/22 05:35 Seg Neutrophils # 9.4 K/mm3 (1.8-7.7) H 05/08/22 05:35 PT 17.8 Sec. (12.2-14.9) H 05/07/22 03:40 INR 1.31 (0.87-1.13) H 05/07/22 03:40 APTT 26.2 Sec. (24.2-36.6) 05/07/22 03:40 Sodium 138 mmol/L (137-145) 05/08/22 04:00 Potassium 4.1 mmol/L (3.6-5.0) 05/08/22 04:00 Chloride 100.4 mmol/L (98-107) 05/08/22 04:00 Carbon Dioxide 10 mmol/L (22-30) L 05/08/22 04:00 Anion Gap 32 mmol/L 05/08/22 04:00 BUN 76 mg/dL (7-17) H 05/08/22 04:00 Creatinine 4.9 mg/dL (0.6-1.2) H 05/08/22 04:00 Estimated GFR 9 ml/min 05/08/22 04:00 BUN/Creatinine Ratio 16 % 05/08/22 04:00 Glucose 107 mg/dL (65-100) H 05/08/22 04:00 Lactic Acid 2.60 mmol/L (0.7-2.0) H* 05/07/22 05:50 Calcium 9.2 mg/dL (8.4-10.2) 05/08/22 04:00 Phosphorus 4.40 mg/dL (2.5-4.5) 05/08/22 04:00 Total Bilirubin 1.00 mg/dL (0.1-1.2) 05/07/22 03:40 AST 70 units/L (5-40) H 05/07/22 03:40 ALT 22 units/L (7-56) 05/07/22 03:40 Alkaline Phosphatase 96 units/L (35-129) 05/07/22 03:40 Ammonia 17.0 umol/L (25-60) L 05/07/22 03:40 Total Protein 6.6 g/dL (6.3-8.2) 05/07/22 03:40 Albumin 3.9 g/dL (3.9-5) 05/07/22 03:40 Albumin/Globulin Ratio 1.4 % 05/07/22 03:40 Prealbumin 0.121 g/L (0.200-0.400) L 05/07/22 09:53 Triglycerides 344 mg/dL (2-149) H 05/07/22 06:00 Cholesterol 220 mg/dL (50-199) H 05/07/22 06:00 LDL Cholesterol Direct 116 mg/dL (50-130) 05/07/22 06:00 HDL Cholesterol 36 mg/dL (40-59) L 05/07/22 06:00 Cholesterol/HDL Ratio 6.11 % 05/07/22 06:00 Vitamin B12 518.1 pg/mL (211-911) 05/07/22 09:53 Folate 2.86 ng/mL (7.3-26.0) L 05/07/22 09:53 TSH 1.640 mlU/mL (0.270-4.200) 05/07/22 09:53 Urine Color Brown (Yellow) 05/07/22 04:55 Urine Turbidity Slightly cloudy (Clear) 05/07/22 04:55 Specific Harvest (Man) 1.025 (1.003-1.030) 05/07/22 04:55 Ur Protein (Man) 1+ mg/dL (Negative) 05/07/22 04:55 Ur Ketones (Man) Negative (Negative) 05/07/22 04:55 Ur Nitrite (Man) Negative (Negative) 05/07/22 04:55 Urine Bilirubin (Man) Color interference (Negative) 05/07/22 04:55 Urine Ictotest Negative (Negative) 05/07/22 04:55 Leukocyte Esterase (Man) Negative (Negative) 05/07/22 04:55 Urine WBC (Auto) 5.0 /HPF (0.0-6.0) 05/07/22 04:55 Urine RBC (Auto) 7.0 /HPF (0.0-6.0) 05/07/22 04:55 U Epithel Cells (Auto) 8.0 /HPF (0-13.0) 05/07/22 04:55 Urine Bacteria (Auto) 1+ /HPF (Negative) 05/07/22 04:55 Urine RBC (Manual) 1+ (Negative) 05/07/22 04:55 Hyaline Casts 9 /LPF 05/07/22 04:55 Granular Casts 4 /LPF 05/07/22 04:55 Urine Mucus 2+ /HPF 05/07/22 04:55 Urine Yeast (Budding) 3+ /HPF 05/07/22 04:55 Urine Opiates Screen Presumptive negative 05/07/22 04:55 Urine Methadone Screen Presumptive negative 05/07/22 04:55 Ur Barbiturates Screen Presumptive negative 05/07/22 04:55 Ur Phencyclidine Scrn Presumptive negative 05/07/22 04:55 Ur Amphetamines Screen Presumptive negative 05/07/22 04:55 U Benzodiazepines Scrn Presumptive negative 05/07/22 04:55 Urine Cocaine Screen Presumptive negative 05/07/22 04:55 U Marijuana (THC) Screen Presumptive negative 05/07/22 04:55 Drugs of Abuse Note Disclamer 05/07/22 04:55 Jean/IV: Voiding Method Incontinent Active Medications - Current Medications Current Medications: Generic Name Dose Route Start Last Admin Trade Name Freq PRN Reason Stop Dose Admin Acetaminophen 650 mg 05/07/22 05:25 Acetaminophen 325 Mg Tab PO Q4H PRN Pain MILD(1-3)/Fever >100.5/ROSAS Albuterol 2.5 mg 05/07/22 05:31 Albuterol 2.5 Mg/3 Ml Nebu IH Q3HRT PRN Shortness Of Breath Aspirin 81 mg 05/07/22 10:00 05/07/22 10:39 Aspirin 81 Mg Tab Chew PO Not Given QDAY [facility] Atorvastatin Calcium 40 mg 05/07/22 22:00 05/07/22 22:00 Atorvastatin 40 Mg Tab PO Not Given QHS RIKI Famotidine 20 mg 05/07/22 10:00 05/07/22 10:39 Famotidine 20 Mg/2 Ml Inj IV 20 mg QAM RIKI Administration Sodium Chloride 1,000 mls @ 125 mls/hr 05/07/22 05:45 Nacl 0.9% 1000 Ml IV DIRECT RIKI Morphine Sulfate 2 mg 05/07/22 05:25 05/07/22 21:13 Morphine 2 Mg/1 Ml Inj IV 2 mg Q4H PRN Administration Pain, Moderate (4-6) Morphine Sulfate 4 mg 05/07/22 05:31 Morphine 4 Mg/1 Ml Inj IV Q4H PRN Pain , Severe (7-10) Ondansetron HCl 4 mg 05/07/22 05:25 Ondansetron 4 Mg/2 Ml Inj IV Q8H PRN Nausea And Vomiting Sodium Chloride 10 ml 05/07/22 05:25 Sodium Chloride 0.9% 10 Ml Flush Syringe IV PRN PRN LINE FLUSH Sodium Chloride 10 ml 05/07/22 10:00 05/07/22 21:14 Sodium Chloride 0.9% 10 Ml Flush Syringe IV 10 ml BID RIKI Administration
[2022-05-08] MEDS ORDERED: CEFEPIME/NS 1 GM/100 ML 1 GM/100 ML BAG IV SCH (10:00)
--- NOTE | 2022-05-08 11:47 | Magnetic Resonance Report ---
MRI BRAIN WITHOUT CONTRAST INDICATION / CLINICAL INFORMATION: stroke, ams, confusion. TECHNIQUE: Multisequence, multiplanar images were obtained. COMPARISON: CT head 05/07/2022 FINDINGS: CEREBRAL and CEREBELLAR HEMISPHERES: Diffusion restriction is identified throughout the right SWEET GOODS MACHINE OPERATOR dis tribution including the posteromedial right temporal lobe and medial right occipital lobe as well as a 1.5 cm area of diffusion restriction in the posterolateral right thalamus. No additional areas of d iffusion restriction are identified. There is no evidence for hemorrhage, mass or mass effect. There is moderate diffuse cortical volume loss. Mild to moderate chronic microangiopathy findings are noted in the white matter. No large chronic infarct. No extra-axial fluid collection. The posterior fossa and contents are unremarkable. VENTRICLES: Normal in size and configuration for age. VISUALIZED ORBITS: No significant abnormality. VISUALIZED PARANASAL SINUSES: No significant abnormality. ADDITIONAL FINDINGS: None. IMPRESSION: Large acute to subacute ischemic infarct at the right SWEET GOODS MACHINE OPERATOR distribution. Volume loss. Chronic ischemic changes in the white matter. MRA HEAD WITHOUT CONTRAST INDICATION / CLINICAL INFORMATION: 72 years Female; stroke, ams, confusion. TECHNIQUE: 3-D time of flight. NASCET type criteria used to evaluate stenoses. COMPARISON: None available. FINDINGS: INTERNAL CAROTID ARTERIES: No significant narrowing appreciated. VERTEBROBASILAR SYSTEM: No significant narrowing appreciated. DISTAL BRANCHES: The right posterior cerebral artery is occluded at or very near its origin. Distal b ranches of the anterior, middle, and left posterior cerebral artery are fairly symmetric in appearanc e and number. ANEURYSM: None identified. IMPRESSION: Occluded right posterior cerebral artery. This correlates with the area of ischemia seen on MRI brain . Signer Name: Marek Gorman Jr, MD Signed: 05/08/2022 11:43 AM Workstation Name: [id number]
--- NOTE | 2022-05-08 11:47 | Magnetic Resonance Report ---
MRI BRAIN WITHOUT CONTRAST INDICATION / CLINICAL INFORMATION: stroke, ams, confusion. TECHNIQUE: Multisequence, multiplanar images were obtained. COMPARISON: CT head 05/07/2022 FINDINGS: CEREBRAL and CEREBELLAR HEMISPHERES: Diffusion restriction is identified throughout the right DIRECTOR EDUCATION dis tribution including the posteromedial right temporal lobe and medial right occipital lobe as well as a 1.5 cm area of diffusion restriction in the posterolateral right thalamus. No additional areas of d iffusion restriction are identified. There is no evidence for hemorrhage, mass or mass effect. There is moderate diffuse cortical volume loss. Mild to moderate chronic microangiopathy findings are noted in the white matter. No large chronic infarct. No extra-axial fluid collection. The posterior fossa and contents are unremarkable. VENTRICLES: Normal in size and configuration for age. VISUALIZED ORBITS: No significant abnormality. VISUALIZED PARANASAL SINUSES: No significant abnormality. ADDITIONAL FINDINGS: None. IMPRESSION: Large acute to subacute ischemic infarct at the right DIRECTOR EDUCATION distribution. Volume loss. Chronic ischemic changes in the white matter. MRA HEAD WITHOUT CONTRAST INDICATION / CLINICAL INFORMATION: 72 years Female; stroke, ams, confusion. TECHNIQUE: 3-D time of flight. NASCET type criteria used to evaluate stenoses. COMPARISON: None available. FINDINGS: INTERNAL CAROTID ARTERIES: No significant narrowing appreciated. VERTEBROBASILAR SYSTEM: No significant narrowing appreciated. DISTAL BRANCHES: The right posterior cerebral artery is occluded at or very near its origin. Distal b ranches of the anterior, middle, and left posterior cerebral artery are fairly symmetric in appearanc e and number. ANEURYSM: None identified. IMPRESSION: Occluded right posterior cerebral artery. This correlates with the area of ischemia seen on MRI brain . Signer Name: Marek Gorman Jr, MD Signed: 05/08/2022 11:43 AM Workstation Name: [id number]
[2022-05-08] MEDS: ASPIRIN 81 MG TAB CHEW PO SCH (12:20)
[2022-05-08] MEDS: FAMOTIDINE 20 MG/2 ML INJ IV SCH (12:21)
--- NOTE | 2022-05-08 12:34 | Progress Note ---
Assessment and Plan Assessment: Severe Renal Failure secondary to prerenal etiology vs ATN vs CKD stage 5 Sepsis Hypotension Altered Mental Status Acidosis CVA Plan: Renal labs reviewed. Serum creatinine 4.9 today, yesterday's was 5.1, No UOP recorded Baseline serum creatinine unknown Renal ultrasound reviewed- Medical renal disease. No hydronephrosis. Urine lytes protein and eosinophils-pending collection CXR-lung mass otherwise clear Has NS@ 125 ml/hr ordered, RN states patient did receive IVF overnight, but IVF was not infusing this morning due to patient pulling out her IV line. RN states she is calling IV team to get an new IV line placed. Will reduce IVF rate to 75 ml/hr when it is resumed since not making urine so far Given patient's severe renal failure and low UOP, I have spoken to patient's son who lives in [place], [place]- Mr Taz Diaz ([phone]) to discuss his mother's advanced renal failure and reviewed her labs with him. We also discussed that if his mother's renal function and UOP does not show any significant improvement by tomorrow morning we will likely recommend hemodialysis initiation. I reviewed risks and benefits of hemodialysis. He states he will be driving to [place] and is coming to see his mother tomorrow morning and will consent to hemodialysis tomorrow morning if it is needed. He states his mother had kidney failure in 2018 but not sure to what extent and if any follow- ups were done. Avoid nephrotoxic agents Obtain daily weights Renally dose medications Monitor I/O's daily Monitor renal function closely No urgent indication for HD today Plan of care reviewed by Dr. Muller Subjective Date of service: 05/08/22 Principal diagnosis: 05/08/2022 Interval history: Patient seen lying in bed. Remains confused. No IVF fluids running. Patient pulled out her IV line this morning. Nurse plans to call IV team to place new INT. Spoke with patient's son Taz Diaz who lives in [place], states he will be coming down tomorrow to see his mother. Discussed with him that patient may need hemodialysis initiation tomorrow if no significant improvement in renal funct ion. States his mother had kidney failure in 2018 but doesn't; know anything else about it. Objective - Vital Signs Vital signs: Vital Signs - 12hr 05/08/22 05/08/22 05/08/22 03:46 07:44 09:05 Temperature 97.5 F L 98.3 F Pulse Rate 82 Respiratory 18 Rate Blood Pressure 97/60 105/61 O2 Sat by Pulse 80 L 98 Oximetry - General Appearance General appearance: other (No acute distress) EENT: ATNC Neck: no JVD, supple Respiratory: Present: Decreased Breath Sounds Cardiology: S1S2 Gastrointestinal: normoactive bowel sounds Integumentary: warm and dry Neurologic: other (Confused) Musculoskeletal: other (No edema) - Lab 05/08/22 05:35 05/08/22 04:00 Most recent lab results Calcium 9.2 mg/dL (8.4-10.2) 05/08/22 04:00 Phosphorus 4.40 mg/dL (2.5-4.5) 05/08/22 04:00 Medications & Allergies - Medications Allergies/Adverse Reactions: Allergies No Known Allergies Allergy (Verified 05/07/22 02:32) Active Medications: Generic Name Dose Route Start Last Admin Trade Name Freq PRN Reason Stop Dose Admin Acetaminophen 650 mg 05/07/22 05:25 Acetaminophen 325 Mg Tab PO Q4H PRN Pain MILD(1-3)/Fever >100.5/ROSAS Albuterol 2.5 mg 05/07/22 05:31 Albuterol 2.5 Mg/3 Ml Nebu IH Q3HRT PRN Shortness Of Breath Aspirin 81 mg 05/07/22 10:00 05/08/22 12:20 Aspirin 81 Mg Tab Chew PO Not Given QDAY [facility] Atorvastatin Calcium 40 mg 05/07/22 22:00 05/07/22 22:00 Atorvastatin 40 Mg Tab PO Not Given QHS [facility] Famotidine 20 mg 05/07/22 10:00 05/08/22 12:21 Famotidine 20 Mg/2 Ml Inj IV Not Given QAM [facility] Sodium Chloride 1,000 mls @ 125 mls/hr 05/07/22 05:45 Nacl 0.9% 1000 Ml IV DIRECT RIKI Morphine Sulfate 2 mg 05/07/22 05:25 05/07/22 21:13 Morphine 2 Mg/1 Ml Inj IV 2 mg Q4H PRN Administration Pain, Moderate (4-6) Morphine Sulfate 4 mg 05/07/22 05:31 Morphine 4 Mg/1 Ml Inj IV Q4H PRN Pain , Severe (7-10) Ondansetron HCl 4 mg 05/07/22 05:25 Ondansetron 4 Mg/2 Ml Inj IV Q8H PRN Nausea And Vomiting Sodium Chloride 10 ml 05/07/22 05:25 Sodium Chloride 0.9% 10 Ml Flush Syringe IV PRN PRN LINE FLUSH Sodium Chloride 10 ml 05/07/22 10:00 05/08/22 12:21 Sodium Chloride 0.9% 10 Ml Flush Syringe IV Not Given BID RIKI
[2022-05-08] MEDS ORDERED: ASPIRIN 300 MG RECT SUPP PR SCH (21:00)
[2022-05-09] MEDS ORDERED: SIMPLE SYRUP 15 ML FEEDTUBE PRN ×2 (08:00)
[2022-05-09] MEDS ORDERED: SODIUM BICARBONATE 325 MG TAB FEEDTUBE PRN (08:00)
[2022-05-09] MEDS ORDERED: LIPASE 10,500/PROTEASE 25,000/AMYLASE 43,750 (UNITS) DR CAP FEEDTUBE PRN (08:00)
[2022-05-09 08:10] LABS: Hepatitis B Surface Antigen Non-Reactive (Negative); Hepatitis C Virus Antibody Non-Reactive (NonReactive)
--- NOTE | 2022-05-09 08:13 | Progress Note ---
Assessment and Plan Assessment and plan: --Patient failed swallow evaluation, pending speech and swallow eval Meanwhile patient needs medications, diet, will place Dobbhoff for medications and tube feeding -- Patient unable to urinate by pure wick/place Jean catheter, input output monitoring Urine analysis and urine cultures --Acute CVA (cerebral vascular accident) large acute right MANAGER OF PRODUCTION distribution CVA Aspirin 81 mg p.o. daily. Lipitor 40 mg p.o. daily. Failed speech and swallow evaluation Numerous attempts to place Dobbhoff, unsuccessful Work-up so far: CT head without contrast;Large area of edema noted throughout the right occipital lobe most likely representing subacute CVA Old lacunar infarctions within the right basal ganglia and right thalamus MRI of the brainLarge acute to subacute ischemic infarct at the right MANAGER OF PRODUCTION distribution volume loss, chronic ischemic changes and white matter MRA; brain; Occluded right posterior cerebral artery correlates with the area of ischemia seen on MRI brain Echocardiogram; EF 50-55 percent, no PFO Chest x-ray;Right upper lobe 1.3 cm pulmonary opacity possibly representing lung mass CT chest requested Renal ultrasound; CT cervical spine: no acute injury moderate multilevel cervical spondylosis pneumomediastinum small amount CT chest requested Left femur no acute abnormality, osteopenia left ankle; no abnormality osteopenia Left foot no acute abnormality osteopenia --Acute metabolic encephalopathy Most likely secondary to CVA and FRANTZ. We will monitor the patient closely. Oxygen by nasal cannula 3 L/min. DuoNeb via nebulizer every 4 hours as needed. IV fluid normal saline at the rate of 125 cc/h. We will monitor the patient closely. Neurology evaluation -- FRANTZ (acute kidney injury) Avoid nephrotoxic drug. Renally dose medication. Normal saline at the rate of 125 cc/h. Nephrology evaluation. Recheck BMP in the morning --Severe metabolic acidosis Management per nephrology Continue bicarb drip - Alzheimer's dementia -- We will monitor the patient closely. Supportive care MRI of the brain. Neurology evaluation --- Hypotension/borderline Normal saline at the rate of 125 cc/h. Blood pressures improved, normal range --Right lung mass; incidental right upper lobe 1.[address] chest requested. Consult pulmonary if needed - Sepsis; Probably UTI Normal saline at the rate of 125 cc/h. Cefepime 2 g IV daily. Follow cultures --DVT prophylaxis SCD for DVT prophylaxis. Pepcid 20 mg IV every 12 hours for GI prophylaxis. Patient is a full code --full code: Closely monitor the patient and adjust management as needed Plan of care reviewed with the patient and her nurse Protection Mgr recommendations noted and appreciated Patient is critically ill, I discussed in detail extensively with patient's son Mr. Joe Mcghee at the bedside Patient's seizures condition, tests and reports, treatment plan, very poor prognosis in view of large stroke And worsening renal function pending hemodialysis, altered level of consciousness, metabolic acidosis Had many questions I answered all of them, verbalized understanding Total critical care time 62 minutes The high probability of a clinically significant, sudden or life threatening deterioration of the [multi] system(s) required my full and direct attention, intervention and personal management. The aggregate critical care time was [62] minutes. This time is in addition to time spent performing reported procedures but includes the following: [x] Data Review and interpretation [x] Patient assessment and monitoring of vital signs [x] Documentation [x] Medication orders and management History Interval history: I have seen and examined the patient at the bedside this morning Patient's chart and medications reviewed Patient is dehydrated, cachectic and confused Noncommunicative with mild agitation Nurse reports that patient did not have any urine in pure wick In mild distress, vital signs noted Hospitalist Physical - Constitutional Vitals: Temp Pulse Resp BP Pulse Ox 97.3 F L 89 18 101/66 100 05/09/22 04:15 05/09/22 04:00 05/09/22 04:15 05/09/22 04:15 05/09/22 04:15 General appearance: Present: mild distress, cachectic (Noncommunicative, mild agitation), other - EENT ENT: other (Oral mucosa dry) - Neck Neck: Present: supple, normal ROM - Respiratory Respiratory: bilateral: diminished, negative: rales, rhonchi, wheezing - Cardiovascular Rhythm: regular Heart Sounds: Present: S1 & S2 - Extremities Extremities: no ischemia, No edema - Abdominal General gastrointestinal: soft, non-tender, non-distended, normal bowel sounds - Integumentary Integumentary: Present: clear, warm - Psychiatric Psychiatric: other (Noncommunicative) - Neurologic Neurologic: other (Acute CVA with residual weakness, unable to assess) Results - Labs CBC & Chem 7: 05/08/22 05:35 05/10/22 04:34 Labs: Laboratory Last Values WBC 10.6 K/mm3 (4.5-11.0) 05/08/22 05:35 RBC 3.72 M/mm3 (3.65-5.03) 05/08/22 05:35 Hgb 9.7 gm/dl (10.1-14.3) L 05/08/22 05:35 Hct 29.8 % (30.3-42.9) L 05/08/22 05:35 MCV 80 fl (79-97) 05/08/22 05:35 MCH 26 pg (28-32) L 05/08/22 05:35 MCHC 33 % (30-34) 05/08/22 05:35 RDW 21.4 % (13.2-15.2) H 05/08/22 05:35 Plt Count 126 K/mm3 (140-440) L 05/08/22 05:35 Lymph % (Auto) 6.7 % (13.4-35.0) L 05/08/22 05:35 Custer % (Auto) 4.1 % (0.0-7.3) 05/08/22 05:35 Eos % (Auto) 0.0 % (0.0-4.3) 05/08/22 05:35 Baso % (Auto) 0.1 % (0.0-1.8) 05/08/22 05:35 Lymph # (Auto) 0.7 K/mm3 (1.2-5.4) L 05/08/22 05:35 Custer # (Auto) 0.4 K/mm3 (0.0-0.8) 05/08/22 05:35 Eos # (Auto) 0.0 K/mm3 (0.0-0.4) 05/08/22 05:35 Baso # (Auto) 0.0 K/mm3 (0.0-0.1) 05/08/22 05:35 Seg Neutrophils % 89.1 % (40.0-70.0) H 05/08/22 05:35 Seg Neutrophils # 9.4 K/mm3 (1.8-7.7) H 05/08/22 05:35 PT 17.8 Sec. (12.2-14.9) H 05/07/22 03:40 INR 1.31 (0.87-1.13) H 05/07/22 03:40 APTT 26.2 Sec. (24.2-36.6) 05/07/22 03:40 Sodium 138 mmol/L (137-145) 05/08/22 04:00 Potassium 4.1 mmol/L (3.6-5.0) 05/08/22 04:00 Chloride 100.4 mmol/L (98-107) 05/08/22 04:00 Carbon Dioxide 10 mmol/L (22-30) L 05/08/22 04:00 Anion Gap 32 mmol/L 05/08/22 04:00 BUN 76 mg/dL (7-17) H 05/08/22 04:00 Creatinine 4.9 mg/dL (0.6-1.2) H 05/08/22 04:00 Estimated GFR 9 ml/min 05/08/22 04:00 BUN/Creatinine Ratio 16 % 05/08/22 04:00 Glucose 107 mg/dL (65-100) H 05/08/22 04:00 Lactic Acid 2.60 mmol/L (0.7-2.0) H* 05/07/22 05:50 Calcium 9.2 mg/dL (8.4-10.2) 05/08/22 04:00 Phosphorus 4.40 mg/dL (2.5-4.5) 05/08/22 04:00 Total Bilirubin 1.00 mg/dL (0.1-1.2) 05/07/22 03:40 AST 70 units/L (5-40) H 05/07/22 03:40 ALT 22 units/L (7-56) 05/07/22 03:40 Alkaline Phosphatase 96 units/L (35-129) 05/07/22 03:40 Ammonia 17.0 umol/L (25-60) L 05/07/22 03:40 Total Protein 6.6 g/dL (6.3-8.2) 05/07/22 03:40 Albumin 3.9 g/dL (3.9-5) 05/07/22 03:40 Albumin/Globulin Ratio 1.4 % 05/07/22 03:40 Prealbumin 0.121 g/L (0.200-0.400) L 05/07/22 09:53 Triglycerides 344 mg/dL (2-149) H 05/07/22 06:00 Cholesterol 220 mg/dL (50-199) H 05/07/22 06:00 LDL Cholesterol Direct 116 mg/dL (50-130) 05/07/22 06:00 HDL Cholesterol 36 mg/dL (40-59) L 05/07/22 06:00 Cholesterol/HDL Ratio 6.11 % 05/07/22 06:00 Vitamin B12 518.1 pg/mL (211-911) 05/07/22 09:53 Folate 2.86 ng/mL (7.3-26.0) L 05/07/22 09:53 TSH 1.640 mlU/mL (0.270-4.200) 05/07/22 09:53 Urine Color Brown (Yellow) 05/07/22 04:55 Urine Turbidity Slightly cloudy (Clear) 05/07/22 04:55 Specific Atkins (Man) 1.025 (1.003-1.030) 05/07/22 04:55 Ur Protein (Man) 1+ mg/dL (Negative) 05/07/22 04:55 Ur Ketones (Man) Negative (Negative) 05/07/22 04:55 Ur Nitrite (Man) Negative (Negative) 05/07/22 04:55 Urine Bilirubin (Man) Color interference (Negative) 05/07/22 04:55 Urine Ictotest Negative (Negative) 05/07/22 04:55 Leukocyte Esterase (Man) Negative (Negative) 05/07/22 04:55 Urine WBC (Auto) 5.0 /HPF (0.0-6.0) 05/07/22 04:55 Urine RBC (Auto) 7.0 /HPF (0.0-6.0) 05/07/22 04:55 U Epithel Cells (Auto) 8.0 /HPF (0-13.0) 05/07/22 04:55 Urine Bacteria (Auto) 1+ /HPF (Negative) 05/07/22 04:55 Urine RBC (Manual) 1+ (Negative) 05/07/22 04:55 Hyaline Casts 9 /LPF 05/07/22 04:55 Granular Casts 4 /LPF 05/07/22 04:55 Urine Mucus 2+ /HPF 05/07/22 04:55 Urine Yeast (Budding) 3+ /HPF 05/07/22 04:55 Urine Opiates Screen Presumptive negative 05/07/22 04:55 Urine Methadone Screen Presumptive negative 05/07/22 04:55 Ur Barbiturates Screen Presumptive negative 05/07/22 04:55 Ur Phencyclidine Scrn Presumptive negative 05/07/22 04:55 Ur Amphetamines Screen Presumptive negative 05/07/22 04:55 U Benzodiazepines Scrn Presumptive negative 05/07/22 04:55 Urine Cocaine Screen Presumptive negative 05/07/22 04:55 U Marijuana (THC) Screen Presumptive negative 05/07/22 04:55 Drugs of Abuse Note Disclamer 05/07/22 04:55 Jean/IV: Voiding Method Incontinent Active Medications - Current Medications Current Medications: Generic Name Dose Route Start Last Admin Trade Name Freq PRN Reason Stop Dose Admin Acetaminophen 650 mg 05/07/22 05:25 Acetaminophen 325 Mg Tab PO Q4H PRN Pain MILD(1-3)/Fever >100.5/ROSAS Albuterol 2.5 mg 05/07/22 05:31 Albuterol 2.5 Mg/3 Ml Nebu IH Q3HRT PRN Shortness Of Breath Lipase/Protease/Amylase 1 each 05/09/22 08:00 Lipase 10,500/Protease 25,000/Amylase 43,750 (Units) Dr Dunne FEEDTUBE PRN PRN For Clogged Feeding Tube Aspirin 300 mg 05/08/22 21:00 05/08/22 21:20 Aspirin 300 Mg Rect Supp DC 300 mg QDAY RIKI Administration Atorvastatin Calcium 40 mg 05/07/22 22:00 05/08/22 21:23 Atorvastatin 40 Mg Tab PO Not Given QHS RIKI Famotidine 20 mg 05/07/22 10:00 05/08/22 12:21 Famotidine 20 Mg/2 Ml Inj IV Not Given QAM RIKI Sodium Chloride 1,000 mls @ 75 mls/hr 05/07/22 05:45 05/08/22 21:28 Nacl 0.9% 1000 Ml IV 75 mls/hr DIRECT RIKI Administration Morphine Sulfate 2 mg 05/07/22 05:25 05/07/22 21:13 Morphine 2 Mg/1 Ml Inj IV 2 mg Q4H PRN Administration Pain, Moderate (4-6) Morphine Sulfate 4 mg 05/07/22 05:31 Morphine 4 Mg/1 Ml Inj IV Q4H PRN Pain , Severe (7-10) Ondansetron HCl 4 mg 05/07/22 05:25 Ondansetron 4 Mg/2 Ml Inj IV Q8H PRN Nausea And Vomiting Simple Syrup 15 ml 05/09/22 08:00 Simple Syrup 15 Ml FEEDTUBE PRN PRN Hypoglycemia Simple Syrup 30 ml 05/09/22 08:00 Simple Syrup 15 Ml FEEDTUBE PRN PRN Hypoglycemia Sodium Bicarbonate 325 mg 05/09/22 08:00 Sodium Bicarbonate 325 Mg Tab FEEDTUBE PRN PRN For Clogged Feeding Tube Sodium Chloride 10 ml 05/07/22 05:25 Sodium Chloride 0.9% 10 Ml Flush Syringe IV PRN PRN LINE FLUSH Sodium Chloride 10 ml 05/07/22 10:00 05/08/22 21:19 Sodium Chloride 0.9% 10 Ml Flush Syringe IV 10 ml BID RIKI Administration Nutrition/Malnutrition Assess - Dietary Evaluation Nutrition/Malnutrition Findings: Nutrition Notes Start: 05/08/22 15:56 Freq: Status: Active Protocol: Document 05/08/22 15:56 AIMEE (Rec: 05/08/22 16:36 AIMEE [id number]) Nutrition Notes 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 Current Diet NPO (since 05/07 10:41). Labs/Tests 05/08: CO2 10, BUN 76, Crea 4. 9, Glu 107. Pertinent Medications 05/08: Nutritionally unremarkable. Height 5 ft 4 in Weight 56.3 kg Deport Body Weight (kg) 54.54 BMI 21.3 Intake Prior to Admission Poor Weight change and time frame Pt denies having loss body weight [place]. Weight Status Appropriate Subjective/Other Information RD consult for skin risk assessment. Pt is currently on NPO. I recommend start with TF, when MD considers pertinent, to provide Pt with energy/ protein needs during LOS. Pt is on Room Air, O2 saturation @ 98%, according to Oxigen Delivery Assessment notes. Pt has missing teeth, according to Physical Assessment History notes. Pt is incontinent, according to Physical Assessment History notes. Bedside swallow assessment failed on 05/07, according to Swallow Screen notes. Pt shows no signs of concern for skin risk at the time, according to Physical Assessment History notes. Percent of energy/protein needs met: Pt is currently on NPO. When pertinent, start with prescribed TF-Nepro w/ CARBSTEADY @ 35 ml/hr provides for energy/protein needs (1, 495 Kcal/67 g) during LOS, 102 % Kcal; 100% AA. Burn Absent Trauma Absent GI Symptoms Other Difficulty In Swallowing Food Allergy No Skin Integrity/Comment Assessment WNL. Current % PO Other Minimum of two criteria No Fluid Accumulation N/A Reduced Flamer After Lasting Strength N/A (non-severe) Protein-Calorie Malnutrition N\A #1 Nutrition Diagnosis Swallowing difficulty Etiology Possibly secondary to Hx of CVA. As Evidenced by Signs and Symptoms Bedside swallow assessment failed on 05/07, according to Swallow Screen notes. Is patient on ventilator? No Is Patient Ambulatory and/or Out of Bed No REE-([facility]-confined to bed) 1275.840 Kcal/Kg value to use for calculation 26 Approximate Energy Requirements Using 1464 kcal/Kg Calculation Used for Recommendations Kcal/kg Additional Notes Protein: 0.8-1.2 g/Kg ABW; 45- 67 g/day. Fluids: 1 ml/Kcal, or as per MD. Nutrition Intervention Nutrition Support: When pertinent, start TF-Nepro w/CARBSTEADY @ 35 ml/hr. Flush: 140 ml water Q 4 hr, or as per MD. Kcal 1,495 Protein (gm) 67 Carbohydrates (gm) 134 Fat (gm) 80 Fluid (mL) 604 Fiber (gm) 10 % RDI: 102% Kcal; 100% AA. Goal #1 Provide at least 75% of energy /protein needs through Enteral Feeding during LOS. Follow-Up By: 05/10/22 Additional Comments When pertinent, start monitoring TF tolerance, HD initiation, and BM.
--- NOTE | 2022-05-09 10:06 | Progress Note ---
Assessment and Plan Severe Renal Failure secondary to prerenal etiology vs ATN vs CKD stage 5 Sepsis Hypotension Altered Mental Status Acidosis CVA Plan: STAT BMP ordered no UOP was recorded, campbell ordered will check VBG will change IVF to sodium bicarb Baseline serum creatinine unknown Renal ultrasound reviewed- Medical renal disease. No hydronephrosis. Urine lytes protein and eosinophils-pending collection CXR-lung mass otherwise clear may need to be started on HD today, discussed with son, agreed if needed. Avoid nephrotoxic agents Obtain daily weights Renally dose medications Monitor I/O's daily Monitor renal function closely Subjective Date of service: 05/09/22 Principal diagnosis: 05/08/2022 Interval history: comfortable, confused. Objective - Vital Signs Vital signs: Vital Signs - 12hr 05/08/22 05/09/22 05/09/22 23:28 04:00 04:15 Temperature 97.8 F 97.3 F L Pulse Rate 92 H 89 Respiratory 18 18 Rate Blood Pressure 107/71 101/66 O2 Sat by Pulse 88 100 Oximetry 05/09/22 07:57 Temperature 98.2 F Pulse Rate 87 Respiratory Rate Blood Pressure 104/69 O2 Sat by Pulse 100 Oximetry - Lab 05/08/22 05:35 05/08/22 04:00 Most recent lab results Calcium 9.2 mg/dL (8.4-10.2) 05/08/22 04:00 Phosphorus 4.40 mg/dL (2.5-4.5) 05/08/22 04:00 Medications & Allergies - Medications Allergies/Adverse Reactions: Allergies No Known Allergies Allergy (Verified 05/07/22 02:32) Active Medications: Generic Name Dose Route Start Last Admin Trade Name Freq PRN Reason Stop Dose Admin Acetaminophen 650 mg 05/07/22 05:25 Acetaminophen 325 Mg Tab PO Q4H PRN Pain MILD(1-3)/Fever >100.5/ROSAS Albuterol 2.5 mg 05/07/22 05:31 Albuterol 2.5 Mg/3 Ml Nebu IH Q3HRT PRN Shortness Of Breath Lipase/Protease/Amylase 1 each 05/09/22 08:00 Lipase 10,500/Protease 25,000/Amylase 43,750 (Units) Dr Dunne FEEDTUBE PRN PRN For Clogged Feeding Tube Aspirin 81 mg 05/09/22 10:00 Aspirin 81 Mg Tab Chew FEEDTUBE QDAY RIKI Atorvastatin Calcium 40 mg 05/07/22 22:00 05/08/22 21:23 Atorvastatin 40 Mg Tab PO Not Given QHS RIKI Famotidine 20 mg 05/07/22 10:00 05/08/22 12:21 Famotidine 20 Mg/2 Ml Inj IV Not Given QAM RIKI Sodium Chloride 1,000 mls @ 75 mls/hr 05/07/22 05:45 05/08/22 21:28 Nacl 0.9% 1000 Ml IV 75 mls/hr DIRECT RIKI Administration Sodium Bicarbonate 150 meq/ 1,150 mls @ 125 mls/hr 05/09/22 10:00 Dextrose IV DIRECT RIKI Morphine Sulfate 2 mg 05/07/22 05:25 05/07/22 21:13 Morphine 2 Mg/1 Ml Inj IV 2 mg Q4H PRN Administration Pain, Moderate (4-6) Morphine Sulfate 4 mg 05/07/22 05:31 Morphine 4 Mg/1 Ml Inj IV Q4H PRN Pain , Severe (7-10) Ondansetron HCl 4 mg 05/07/22 05:25 Ondansetron 4 Mg/2 Ml Inj IV Q8H PRN Nausea And Vomiting Simple Syrup 15 ml 05/09/22 08:00 Simple Syrup 15 Ml FEEDTUBE PRN PRN Hypoglycemia Simple Syrup 30 ml 05/09/22 08:00 Simple Syrup 15 Ml FEEDTUBE PRN PRN Hypoglycemia Sodium Bicarbonate 325 mg 05/09/22 08:00 Sodium Bicarbonate 325 Mg Tab FEEDTUBE PRN PRN For Clogged Feeding Tube Sodium Chloride 10 ml 05/07/22 05:25 Sodium Chloride 0.9% 10 Ml Flush Syringe IV PRN PRN LINE FLUSH Sodium Chloride 10 ml 05/07/22 10:00 05/08/22 21:19 Sodium Chloride 0.9% 10 Ml Flush Syringe IV 10 ml BID RIKI Administration
--- NOTE | 2022-05-09 10:28 | XRay Report ---
ABDOMEN 1 VIEW(S) INDICATION / CLINICAL INFORMATION: doubhoff tube placement. COMPARISON: None available. FINDINGS: TUBES / LINES: The distal tip of the Dobbhoff tube appears to terminate in the right lower lobe bron[place] hus. Replacement is recommended. BOWEL GAS PATTERN: No significant abnormality. FREE AIR / EXTRALUMINAL GAS: None seen. ADDITIONAL FINDINGS: No significant additional findings. IMPRESSION: The feeding tube terminates in the right lower lobe bronchus. Replacement is recommended. Signer Name: Marek Gorman Jr, MD Signed: 05/09/2022 10:23 AM Workstation Name: [id number]
[2022-05-09] MEDS: FAMOTIDINE 20 MG/2 ML INJ IV SCH (10:45)
[2022-05-09] MEDS: SODIUM BICARBONATE 150 MEQ in DEXTROSE 5% IN WATER 1,000 ML IV SCH ×2 (12:20→21:39)
[2022-05-09] MEDS ORDERED: PERMETHRIN 5% CREAM 60 GM TP SCH (14:00)
--- NOTE | 2022-05-09 15:26 | XRay Report ---
XR abdomen 1V ap INDICATION: Doubhoff placement. COMPARISON: Exam done earlier today FINDINGS: The tip of the feeding tube projects over the right lower chest, repositioning is again recommended. Signer Name: Leonides Schmitt MD Signed: 05/09/2022 3:21 PM Workstation Name: [id number]
[2022-05-09] MEDS: ASPIRIN 81 MG TAB CHEW FEEDTUBE SCH (16:44)
[2022-05-09] MEDS ORDERED: SODIUM CHLORIDE 0.9% 500 ML IVPB IV ONE (17:00)
--- NOTE | 2022-05-09 17:34 | Event Note ---
Date: 05/09/22 Patient continues to deteriorate, severe metabolic acidosis Patient is on bicarb drip, IV fluids Unable to place Dobbhoff even after multiple attempts Fluoroscopic guided Dobbhoff placement requested. Blood pressures in the lower range, fluid boluses Patient may need pressors if no improvement. Patient will be transferred to [facility] for close observation. I discussed again in detail with the son patient's critical condition Advanced directives, goals of treatment. Son wants full CODE STATUS He said he would discuss with his family and get back to us with the decision of CODE STATUS. Full code at this point I called and discussed with ICU charge nurse, agreed for transfer to [facility]
[2022-05-09] MEDS ORDERED: SODIUM CHLORIDE 0.9% 500 ML 500 ML IV ONE (18:00)
[2022-05-10 00:08] LABS: Calcium 8.1 mg/dL (8.4-10.2)
[2022-05-10 05:40] LABS: Calcium 8.5 mg/dL (8.4-10.2)
[2022-05-10] MEDS: SODIUM BICARBONATE 150 MEQ in DEXTROSE 5% IN WATER 1,000 ML IV SCH (07:19)
--- NOTE | 2022-05-10 09:05 | Progress Note ---
Assessment and Plan Severe Renal Failure secondary to prerenal etiology vs ATN vs CKD stage 5 Sepsis Hypotension Altered Mental Status Acidosis CVA Plan: Cr and BUn are trending down UOP is improving cont sodium bicarb gtt for now Baseline serum creatinine unknown Renal ultrasound reviewed- Medical renal disease. No hydronephrosis. Urine lytes protein and eosinophils-pending collection CXR-lung mass otherwise clear may need to be started on HD today, discussed with son, agreed if needed. Avoid nephrotoxic agents Obtain daily weights Renally dose medications Monitor I/O's daily Monitor renal function closely Subjective Date of service: 05/10/22 Principal diagnosis: 05/08/2022 Interval history: was transferred to ICU for severe metabolic acidosis Objective - Vital Signs Vital signs: Vital Signs - 12hr 05/09/22 05/09/22 05/10/22 22:45 23:11 00:00 Temperature 98.1 F Pulse Rate 72 86 Respiratory 18 20 Rate Blood Pressure 110/68 O2 Sat by Pulse 100 83 L 96 Oximetry 05/10/22 05/10/22 05/10/22 01:56 02:00 03:00 Temperature Pulse Rate 95 H 87 86 Respiratory 16 16 17 Rate Blood Pressure 115/70 O2 Sat by Pulse 100 100 100 Oximetry 05/10/22 05/10/22 05/10/22 04:00 05:00 05:03 Temperature 99.4 F Pulse Rate 96 H 84 Respiratory 14 18 18 Rate Blood Pressure 115/70 100/61 O2 Sat by Pulse 100 99 100 Oximetry 05/10/22 06:00 Temperature Pulse Rate 83 Respiratory 17 Rate Blood Pressure 107/67 O2 Sat by Pulse 100 Oximetry - Lab 05/08/22 05:35 05/10/22 04:34 Most recent lab results Calcium 8.5 mg/dL (8.4-10.2) 05/10/22 04:34 Phosphorus 4.40 mg/dL (2.5-4.5) 05/08/22 04:00 Magnesium 1.80 mg/dL (1.7-2.3) 05/10/22 04:34 Medications & Allergies - Medications Allergies/Adverse Reactions: Allergies No Known Allergies Allergy (Verified 05/07/22 02:32) Active Medications: Generic Name Dose Route Start Last Admin Trade Name Freq PRN Reason Stop Dose Admin Acetaminophen 650 mg 05/07/22 05:25 Acetaminophen 325 Mg Tab PO Q4H PRN Pain MILD(1-3)/Fever >100.5/ROSAS Albuterol 2.5 mg 05/07/22 05:31 Albuterol 2.5 Mg/3 Ml Nebu IH Q3HRT PRN Shortness Of Breath Lipase/Protease/Amylase 1 each 05/09/22 08:00 Lipase 10,500/Protease 25,000/Amylase 43,750 (Units) Dr Dunne FEEDTUBE PRN PRN For Clogged Feeding Tube Aspirin 81 mg 05/09/22 10:00 05/09/22 16:44 Aspirin 81 Mg Tab Chew FEEDTUBE Not Given QDAY RIKI Atorvastatin Calcium 40 mg 05/07/22 22:00 05/09/22 21:37 Atorvastatin 40 Mg Tab PO Not Given QHS RIKI Famotidine 20 mg 05/07/22 10:00 05/09/22 10:45 Famotidine 20 Mg/2 Ml Inj IV 20 mg QAM RIKI Administration Sodium Bicarbonate 150 meq/ 1,150 mls @ 125 mls/hr 05/09/22 10:00 05/10/22 07:19 Dextrose IV 125 mls/hr DIRECT RIKI Administration Morphine Sulfate 2 mg 05/07/22 05:25 05/07/22 21:13 Morphine 2 Mg/1 Ml Inj IV 2 mg Q4H PRN Administration Pain, Moderate (4-6) Ondansetron HCl 4 mg 05/07/22 05:25 Ondansetron 4 Mg/2 Ml Inj IV Q8H PRN Nausea And Vomiting Simple Syrup 15 ml 05/09/22 08:00 Simple Syrup 15 Ml FEEDTUBE PRN PRN Hypoglycemia Simple Syrup 30 ml 05/09/22 08:00 Simple Syrup 15 Ml FEEDTUBE PRN PRN Hypoglycemia Sodium Bicarbonate 325 mg 05/09/22 08:00 Sodium Bicarbonate 325 Mg Tab FEEDTUBE PRN PRN For Clogged Feeding Tube Sodium Chloride 10 ml 05/07/22 05:25 Sodium Chloride 0.9% 10 Ml Flush Syringe IV PRN PRN LINE FLUSH Sodium Chloride 10 ml 05/07/22 10:00 05/09/22 21:37 Sodium Chloride 0.9% 10 Ml Flush Syringe IV 10 ml BID RIKI Administration
[2022-05-10 09:23] LABS: ABG Base Excess 0.1 mmol/L (-2.0-3.0); ABG HCO3 22.3 mmol/L (20.0-26.0); ABG Methemoglobin 0.4 % (0.0-1.5); ABG Oxygen Saturation 98.2 % (95.0-99.0); ABG PCO2 26.3 mm Hg; ABG PH 7.546 pH Units (7.350-7.450)
[2022-05-10] MEDS: MORPHINE 2 MG/1 ML INJ IV PRN ×3 (10:18→18:33)
[2022-05-10] MEDS: FAMOTIDINE 20 MG/2 ML INJ IV SCH (10:21)
[2022-05-10] MEDS: ASPIRIN 81 MG TAB CHEW FEEDTUBE SCH (10:21)
--- NOTE | 2022-05-10 11:52 | Electrocardiograph Report ---
[facility] Test Date: 2022-05-09 Test Time: 17:09:48 Pat Name: MICKI SAL Department: Room: A267 1 Gender: F [employer] Clerk: SAMIA : [id number] Requested By: SHARON MOHR Order Number: [id number] Reading MD: Jey Mahmood Measurements Intervals [place] Rate: 93 P: 66 MD: 38 QRS: -35 QRSD: 107 T: 49 QT: 335 QTc: 417 Interpretive Statements Sinus tachycardia Atrial premature complexes Probable left atrial enlargement Left axis deviation Compared to ECG 05/07/2022 06:16:51 Atrial premature complex(es) now present Left-axis deviation now present Electronically Signed On 05-10-2022 11:52:19 EDT by Jey Mahmood
--- NOTE | 2022-05-10 12:07 | Event Note ---
Date: 05/10/22 Spoke with patients son, all questions answered, he elected to make patient a DNR and will discuss with the rest of the family about PEG/DOBHOFF PLACEMENT
--- NOTE | 2022-05-10 13:15 | Progress Note ---
Assessment and Plan Assessment and plan: 72-year-old female with a history of Alzheimer dementia and most likely chronic kidney disease was brought in by EMS with altered mental status that was noticed after patient was found sitting on the toilet bowl for about 7 hours covered in feces. No fever or chills reported. Patient noted to be hypotensive on presentation. No other modifying or associated factors reported. In the emergency room patient is found to have BUN of 67, creatinine 5.1, lactic acid 3.30, WBC 11.6, CT scan of the head shows large area of edema noted throughout the right occipital lobe most likely representing subacute CVA. Edema due to underlying mass is thought to be much less likely but should be confirmed with MRI. Old lacunar infarct within the right basal ganglia and right thalamus. Chest x-ray shows right upper lobe 1.3 cm pulmonary opacity possibly representing lung mass. Chest CT is suggested. --Patient failed swallow evaluation, pending speech and swallow eval Meanwhile patient needs medications, diet, will place Dobbhoff for medications and tube feeding -- Patient unable to urinate by pure wick/place Jean catheter, input output monitoring Urine analysis and urine cultures 05/10: Patient was transfered to [facility], Son at bedside made the patient a DNR, he wants to hold off on PEG AND PLACEMENT and speak with Neurology on thursday about possiblity of recovery. He will also make a decision about Hospice at that time. He understands the dynamics of the medical condition and how things can change Will start D5 1/2 NS in the mean time. Renal function abnormality discussed with son in detail Aspiration precautions, I also discussed the Hypotensive episode and the possible NEED FOR PRESSORS. He Verbalized understanding 45mins spent on care coordination in addition to time spent on direct patient care cct 80mins --Acute CVA (cerebral vascular accident) large acute right CUSTOMER SUCCESS REPRESENTATIVE distribution CVA Aspirin 81 mg p.o. daily. Lipitor 40 mg p.o. daily. Failed speech and swallow evaluation Numerous attempts to place Dobbhoff, unsuccessful Work-up so far: CT head without contrast;Large area of edema noted throughout the right occipital lobe most likely representing subacute CVA Old lacunar infarctions within the right basal ganglia and right thalamus MRI of the brainLarge acute to subacute ischemic infarct at the right CUSTOMER SUCCESS REPRESENTATIVE distribution volume loss, chronic ischemic changes and white matter MRA; brain; Occluded right posterior cerebral artery correlates with the area of ischemia seen on MRI brain Echocardiogram; EF 50-55 percent, no PFO Chest x-ray;Right upper lobe 1.3 cm pulmonary opacity possibly representing lung mass CT chest requested Renal ultrasound; CT cervical spine: no acute injury moderate multilevel cervical spondylosis pneumomediastinum small amount CT chest requested Left femur no acute abnormality, osteopenia left ankle; no abnormality osteopenia Left foot no acute abnormality osteopenia --Acute metabolic encephalopathy Most likely secondary to CVA and FRANTZ. We will monitor the patient closely. Oxygen by nasal cannula 3 L/min. DuoNeb via nebulizer every 4 hours as needed. IV fluid normal saline at the rate of 125 cc/h. We will monitor the patient closely. Neurology evaluation -- FRANTZ (acute kidney injury) Avoid nephrotoxic drug. Renally dose medication. Normal saline at the rate of 125 cc/h. Nephrology evaluation. Recheck BMP in the morning --Severe metabolic acidosis Management per nephrology Continue bicarb drip - Alzheimer's dementia -- We will monitor the patient closely. Supportive care MRI of the brain. Neurology evaluation --- Hypotension/borderline Normal saline at the rate of 125 cc/h. Blood pressures improved, normal range --Right lung mass; incidental right upper lobe 1.[address] chest requested. Consult pulmonary if needed - Sepsis; Probably UTI Normal saline at the rate of 125 cc/h. Cefepime 2 g IV daily. Follow cultures --DVT prophylaxis SCD for DVT prophylaxis. Pepcid 20 mg IV every 12 hours for GI prophylaxis. Patient is a full code --full code: Closely monitor the patient and adjust management as needed Plan of care reviewed with the patient and her nurse Resistor Inspector recommendations noted and appreciated Patient is critically ill, I discussed in detail extensively with patient's son Mr. Joe Mcghee at the bedside Patient's seizures condition, tests and reports, treatment plan, very poor prognosis in view of large stroke And worsening renal function pending hemodialysis, altered level of consciousness, metabolic acidosis Had many questions I answered all of them, verbalized understanding The high probability of a clinically significant, sudden or life threatening deterioration of the [multi] system(s) required my full and direct attention, intervention and personal management. The aggregate critical care time was [62] minutes. This time is in addition to time spent performing reported procedures but includes the following: [x] Data Review and interpretation [x] Patient assessment and monitoring of vital signs [x] Documentation [x] Medication orders and management History Interval history: Patient seen and examined, remains lethargic not following any commands Hospitalist Physical - Physical exam Narrative exam: General appearance: Present: mild distress, cachectic (Noncommunicative, mild agitation), - EENT ENT: other (Oral mucosa dry) - Neck Neck: Present: supple, normal ROM - Respiratory Respiratory: bilateral: diminished, negative: rales, rhonchi, wheezing - Cardiovascular Rhythm: regular Heart Sounds: Present: S1 & S2 - Extremities Extremities: no ischemia, No edema - Abdominal General gastrointestinal: soft, non-tender, non-distended, normal bowel sounds - Integumentary Integumentary: Present: clear, warm - Psychiatric Psychiatric: other (Noncommunicative) - Neurologic Neurologic: other (Acute CVA with residual weakness, unable to assess) - Constitutional Vitals: Temp Pulse Resp BP Pulse Ox 99.8 F H 76 18 93/48 98 05/10/22 12:00 05/10/22 12:00 05/10/22 12:00 05/10/22 12:00 05/10/22 12:00 General appearance: Present: mild distress, cachectic (Noncommunicative, mild agitation), other Results - Labs CBC & Chem 7: 05/08/22 05:35 05/10/22 04:34 Labs: Laboratory Last Values WBC 10.6 K/mm3 (4.5-11.0) 05/08/22 05:35 RBC 3.72 M/mm3 (3.65-5.03) 05/08/22 05:35 Hgb 9.7 gm/dl (10.1-14.3) L 05/08/22 05:35 Hct 29.8 % (30.3-42.9) L 05/08/22 05:35 MCV 80 fl (79-97) 05/08/22 05:35 MCH 26 pg (28-32) L 05/08/22 05:35 MCHC 33 % (30-34) 05/08/22 05:35 RDW 21.4 % (13.2-15.2) H 05/08/22 05:35 Plt Count 126 K/mm3 (140-440) L 05/08/22 05:35 Lymph % (Auto) 6.7 % (13.4-35.0) L 05/08/22 05:35 [place] % (Auto) 4.1 % (0.0-7.3) 05/08/22 05:35 Eos % (Auto) 0.0 % (0.0-4.3) 05/08/22 05:35 Baso % (Auto) 0.1 % (0.0-1.8) 05/08/22 05:35 Lymph # (Auto) 0.7 K/mm3 (1.2-5.4) L 05/08/22 05:35 [place] # (Auto) 0.4 K/mm3 (0.0-0.8) 05/08/22 05:35 Eos # (Auto) 0.0 K/mm3 (0.0-0.4) 05/08/22 05:35 Baso # (Auto) 0.0 K/mm3 (0.0-0.1) 05/08/22 05:35 Seg Neutrophils % 89.1 % (40.0-70.0) H 05/08/22 05:35 Seg Neutrophils # 9.4 K/mm3 (1.8-7.7) H 05/08/22 05:35 PT 17.8 Sec. (12.2-14.9) H 05/07/22 03:40 INR 1.31 (0.87-1.13) H 05/07/22 03:40 APTT 26.2 Sec. (24.2-36.6) 05/07/22 03:40 ABG pH 7.546 pH Units (7.350-7.450) H 05/10/22 09:00 ABG pCO2 26.3 mm Hg 05/10/22 09:00 ABG pO2 104.0 mm Hg (80.0-90.0) H 05/10/22 09:00 ABG HCO3 22.3 mmol/L (20.0-26.0) 05/10/22 09:00 ABG O2 Saturation 98.2 % (95.0-99.0) 05/10/22 09:00 ABG O2 Content 9.9 (0.0-44) 05/10/22 09:00 ABG Base Excess 0.1 mmol/L (-2.0-3.0) 05/10/22 09:00 ABG Hemoglobin 7.1 gm/dl (12.0-16.0) L 05/10/22 09:00 ABG Carboxyhemoglobin 1.2 % (0.0-5.0) 05/10/22 09:00 ABG Methemoglobin 0.4 % (0.0-1.5) 05/10/22 09:00 Oxyhemoglobin 96.7 % (95.0-99.0) 05/10/22 09:00 FiO2 21 % 05/10/22 09:00 Sodium 145 mmol/L (137-145) 05/10/22 04:34 Potassium 3.3 mmol/L (3.6-5.0) L 05/10/22 04:34 Chloride 104.9 mmol/L (98-107) 05/10/22 04:34 Carbon Dioxide 19 mmol/L (22-30) L 05/10/22 04:34 Anion Gap 24 mmol/L 05/10/22 04:34 BUN 73 mg/dL (7-17) H 05/10/22 04:34 Creatinine 3.9 mg/dL (0.6-1.2) H 05/10/22 04:34 Estimated GFR 11 ml/min 05/10/22 04:34 BUN/Creatinine Ratio 19 % 05/10/22 04:34 Glucose 174 mg/dL (65-100) H 05/10/22 04:34 Lactic Acid 1.70 mmol/L (0.7-2.0) 05/09/22 Unknown Calcium 8.5 mg/dL (8.4-10.2) 05/10/22 04:34 Phosphorus 4.40 mg/dL (2.5-4.5) 05/08/22 04:00 Magnesium 1.80 mg/dL (1.7-2.3) 05/10/22 04:34 Total Bilirubin 1.00 mg/dL (0.1-1.2) 05/07/22 03:40 AST 70 units/L (5-40) H 05/07/22 03:40 ALT 22 units/L (7-56) 05/07/22 03:40 Alkaline Phosphatase 96 units/L (35-129) 05/07/22 03:40 Ammonia 17.0 umol/L (25-60) L 05/07/22 03:40 Total Protein 6.6 g/dL (6.3-8.2) 05/07/22 03:40 Albumin 3.9 g/dL (3.9-5) 05/07/22 03:40 Albumin/Globulin Ratio 1.4 % 05/07/22 03:40 Prealbumin 0.121 g/L (0.200-0.400) L 05/07/22 09:53 Triglycerides 344 mg/dL (2-149) H 05/07/22 06:00 Cholesterol 220 mg/dL (50-199) H 05/07/22 06:00 LDL Cholesterol Direct 116 mg/dL (50-130) 05/07/22 06:00 HDL Cholesterol 36 mg/dL (40-59) L 05/07/22 06:00 Cholesterol/HDL Ratio 6.11 % 05/07/22 06:00 Vitamin B12 518.1 pg/mL (211-911) 05/07/22 09:53 Folate 2.86 ng/mL (7.3-26.0) L 05/07/22 09:53 TSH 1.640 mlU/mL (0.270-4.200) 05/07/22 09:53 Urine Color Brown (Yellow) 05/07/22 04:55 Urine Turbidity Slightly cloudy (Clear) 05/07/22 04:55 Specific Russell (Man) 1.025 (1.003-1.030) 05/07/22 04:55 Ur Protein (Man) 1+ mg/dL (Negative) 05/07/22 04:55 Ur Ketones (Man) Negative (Negative) 05/07/22 04:55 Ur Nitrite (Man) Negative (Negative) 05/07/22 04:55 Urine Bilirubin (Man) Color interference (Negative) 05/07/22 04:55 Urine Ictotest Negative (Negative) 05/07/22 04:55 Leukocyte Esterase (Man) Negative (Negative) 05/07/22 04:55 Urine WBC (Auto) 5.0 /HPF (0.0-6.0) 05/07/22 04:55 Urine RBC (Auto) 7.0 /HPF (0.0-6.0) 05/07/22 04:55 U Epithel Cells (Auto) 8.0 /HPF (0-13.0) 05/07/22 04:55 Urine Bacteria (Auto) 1+ /HPF (Negative) 05/07/22 04:55 Urine RBC (Manual) 1+ (Negative) 05/07/22 04:55 Hyaline Casts 9 /LPF 05/07/22 04:55 Granular Casts 4 /LPF 05/07/22 04:55 Urine Mucus 2+ /HPF 05/07/22 04:55 Urine Yeast (Budding) 3+ /HPF 05/07/22 04:55 Urine Eosinophils None seen (None Seen) 05/09/22 11:00 Urine Opiates Screen Presumptive negative 05/07/22 04:55 Urine Methadone Screen Presumptive negative 05/07/22 04:55 Ur Barbiturates Screen Presumptive negative 05/07/22 04:55 Ur Phencyclidine Scrn Presumptive negative 05/07/22 04:55 Ur Amphetamines Screen Presumptive negative 05/07/22 04:55 U Benzodiazepines Scrn Presumptive negative 05/07/22 04:55 Urine Cocaine Screen Presumptive negative 05/07/22 04:55 U Marijuana (THC) Screen Presumptive negative 05/07/22 04:55 Drugs of Abuse Note Disclamer 05/07/22 04:55 Copper 143 mcg/dL (70-175) 05/07/22 09:53 Hepatitis A IgM Ab Non-reactive (NonReactive) 05/09/22 07:11 Hep Bs Antigen Non-reactive (Negative) 05/09/22 07:11 Hep B Core IgM Ab Non-reactive (NonReactive) 05/09/22 07:11 Hepatitis C Antibody Non-reactive (NonReactive) 05/09/22 07:11 Microbiology: Microbiology 05/09/22 20:05 Peripheral/Venous Blood Culture - Preliminary Culture in Progress 05/09/22 20:05 Peripheral/Venous Blood Culture - Preliminary Culture in Progress Jean/IV: Voiding Method Indwelling Catheter Active Medications - Current Medications Current Medications: Generic Name Dose Route Start Last Admin Trade Name Freq PRN Reason Stop Dose Admin Acetaminophen 650 mg 05/07/22 05:25 Acetaminophen 325 Mg Tab PO Q4H PRN Pain MILD(1-3)/Fever >100.5/ROSAS Albuterol 2.5 mg 05/07/22 05:31 Albuterol 2.5 Mg/3 Ml Nebu IH Q3HRT PRN Shortness Of Breath Lipase/Protease/Amylase 1 each 05/09/22 08:00 Lipase 10,500/Protease 25,000/Amylase 43,750 (Units) Dr Dunne FEEDTUBE PRN PRN For Clogged Feeding Tube Aspirin 81 mg 05/09/22 10:00 05/10/22 10:21 Aspirin 81 Mg Tab Chew FEEDTUBE Not Given QDAY RIKI Atorvastatin Calcium 40 mg 05/07/22 22:00 05/09/22 21:37 Atorvastatin 40 Mg Tab PO Not Given QHS RIKI Famotidine 20 mg 05/07/22 10:00 05/10/22 10:21 Famotidine 20 Mg/2 Ml Inj IV Not Given QAM RIKI Sodium Bicarbonate 150 meq/ 1,150 mls @ 125 mls/hr 05/09/22 10:00 05/10/22 07:19 Dextrose IV 125 mls/hr DIRECT RIKI Administration Morphine Sulfate 2 mg 05/07/22 05:25 05/10/22 10:18 Morphine 2 Mg/1 Ml Inj IV 2 mg Q4H PRN Administration Pain, Moderate (4-6) Ondansetron HCl 4 mg 05/07/22 05:25 Ondansetron 4 Mg/2 Ml Inj IV Q8H PRN Nausea And Vomiting Simple Syrup 15 ml 05/09/22 08:00 Simple Syrup 15 Ml FEEDTUBE PRN PRN Hypoglycemia Simple Syrup 30 ml 05/09/22 08:00 Simple Syrup 15 Ml FEEDTUBE PRN PRN Hypoglycemia Sodium Bicarbonate 325 mg 05/09/22 08:00 Sodium Bicarbonate 325 Mg Tab FEEDTUBE PRN PRN For Clogged Feeding Tube Sodium Chloride 10 ml 05/07/22 05:25 Sodium Chloride 0.9% 10 Ml Flush Syringe IV PRN PRN LINE FLUSH Sodium Chloride 10 ml 05/07/22 10:00 05/10/22 10:17 Sodium Chloride 0.9% 10 Ml Flush Syringe IV 10 ml BID RIKI Administration Nutrition/Malnutrition Assess - Dietary Evaluation Nutrition/Malnutrition Findings: Nutrition Notes Start: 05/08/22 15:56 Freq: Status: Active Protocol: Document 05/09/22 14:38 CM (Rec: 05/09/22 14:47 CM [id number]) Co-Sign 05/09/22 14:38 WW Nutrition Notes Need for Assessment generated from: MD Order Initial or Follow up Brief Note Current Diagnosis Acute Kidney Injury,CKD (stage V CKD),Sepsis,Stroke Other Pertinent Diagnosis AMS, Alzheimer's dementia, hypotension Labs/Tests 05/09: CO2 10 BUN 76 Cr 4.9 Pertinent Medications Reviewed Height 5 ft 4 in Weight 56 kg Weld Body Weight (kg) 54.54 BMI 21.2 Weight Status Appropriate Subjective/Other Information RD consult for write/manage tube feeding. Pt is NPO. Distal tip of DHT terminates in lower lobe of bronchus. Replacement recommended per Abdomen XR 05/09. DHT repositioned per RN and awaiting confirmation XR. Abdomen flat, soft, non-tender , non-distended w/ BS+ per progress notes. Enteral nutrition recommendations remain the same as yesterday. See below. Percent of energy/protein needs met: Pt is currently on NPO. When pertinent, start with prescribed TF-Nepro w/ CARBSTEADY @ 35 ml/hr provides for energy/protein needs (1, 495 Kcal/67 g) during LOS, 102 % Kcal; 100% AA. Burn Absent Trauma Absent GI Symptoms Other Difficulty In Swallowing Food Allergy No Skin Integrity/Comment WNL Current % PO Other #1 Nutrition Diagnosis Swallowing difficulty Diagnosis Progress(for reassessment Continues documentation) Kcal/Kg value to use for calculation 26 Approximate Energy Requirements Using 1456 kcal/Kg Calculation Used for Recommendations Kcal/kg Additional Notes Protein: 0.8-1.2 g/Kg ABW; 45- 67 g/day. Fluids: 1 ml/Kcal, or as per MD. Nutrition Intervention Nutrition Support: When pertinent, start TF-Nepro w/CARBSTEADY @ 35 ml/hr. Flush: 140 ml water Q 4 hr, or as per MD. Kcal 1,495 Protein (gm) 67 Carbohydrates (gm) 134 Fat (gm) 80 Fluid (mL) 604 Fiber (gm) 10 % RDI: 102%kcal/100% AA Goal #1 Pt to intiate and tolerate >75 % of estimated energy/protein needs through enteral nutrition. Follow-Up By: 05/11/22 Additional Comments When pertinent, start monitoring TF tolerance, HD initiation, and BM.
[2022-05-10] MEDS ORDERED: DEXTROSE 50% IN WATER (25GM) 50 ML SYRINGE IV PRN (13:19)
[2022-05-10] MEDS: D5W/0.45% NACL 1,000 ML IV SCH (14:33)
[2022-05-10] MEDS: INSULIN LISPRO 100 UNIT/ML SUB-Q SCH (18:26)
[2022-05-11] MEDS: INSULIN LISPRO 100 UNIT/ML SUB-Q SCH ×4 (00:59→17:00)
[2022-05-11] MEDS: D5W/0.45% NACL 1,000 ML IV SCH (07:15)
[2022-05-11 09:36] LABS: Calcium 7.7 mg/dL (8.4-10.2)
--- NOTE | 2022-05-11 09:45 | Progress Note ---
Assessment and Plan Severe Renal Failure secondary to prerenal etiology vs ATN vs CKD stage 5 Sepsis Hypotension Altered Mental Status Acidosis CVA Plan: Remains to have elevated Cr, now UOP is trending down will check 24 hours Cr clearance hold IVF Baseline serum creatinine unknown Renal ultrasound reviewed- Medical renal disease. No hydronephrosis. Urine lytes protein and eosinophils-pending collection CXR-lung mass otherwise clear may need to be started on HD today, discussed with son, agreed if needed, likely tomorrow if UOP remains low. Avoid nephrotoxic agent Obtain daily weights Renally dose medications Monitor I/O's daily Monitor renal function closely Subjective Date of service: 05/11/22 Principal diagnosis: 05/08/2022 Interval history: No overnight events Objective - Vital Signs Vital signs: Vital Signs - 12hr 05/10/22 05/10/22 05/10/22 22:00 22:30 23:30 Temperature Pulse Rate 81 80 77 Pulse Rate [ 81 From Monitor] Respiratory 15 18 17 Rate Blood Pressure 86/52 86/52 92/53 O2 Sat by Pulse 100 100 98 Oximetry 05/10/22 05/11/22 05/11/22 23:40 00:00 00:30 Temperature Pulse Rate 77 78 73 Pulse Rate [ From Monitor] Respiratory 14 17 20 Rate Blood Pressure 92/53 95/55 95/55 O2 Sat by Pulse 98 99 98 Oximetry 05/11/22 05/11/22 05/11/22 00:39 00:55 01:30 Temperature 98.7 F Pulse Rate 81 77 Pulse Rate [ From Monitor] Respiratory 17 Rate Blood Pressure 79/61 O2 Sat by Pulse 100 Oximetry 05/11/22 05/11/22 05/11/22 02:00 02:30 03:00 Temperature Pulse Rate 79 84 77 Pulse Rate [ From Monitor] Respiratory 18 13 14 Rate Blood Pressure 88/56 79/61 94/54 O2 Sat by Pulse 98 98 100 Oximetry 05/11/22 05/11/22 05/11/22 03:30 04:00 04:16 Temperature 98.2 F Pulse Rate 82 81 85 Pulse Rate [ From Monitor] Respiratory 14 14 13 Rate Blood Pressure 94/54 84/54 84/54 O2 Sat by Pulse 98 100 99 Oximetry 05/11/22 05/11/22 05/11/22 04:30 04:46 05:00 Temperature Pulse Rate 75 79 86 Pulse Rate [ From Monitor] Respiratory 19 17 17 Rate Blood Pressure 84/54 84/54 89/60 O2 Sat by Pulse 100 100 100 Oximetry 05/11/22 05/11/22 05/11/22 05:16 05:30 05:46 Temperature Pulse Rate 85 87 89 Pulse Rate [ From Monitor] Respiratory 15 16 15 Rate Blood Pressure 89/60 89/60 89/60 O2 Sat by Pulse 99 99 100 Oximetry 05/11/22 05/11/22 05/11/22 06:00 06:16 06:30 Temperature Pulse Rate 80 81 83 Pulse Rate [ From Monitor] Respiratory 17 14 13 Rate Blood Pressure 89/60 84/45 O2 Sat by Pulse 100 100 99 Oximetry 05/11/22 05/11/22 05/11/22 06:46 07:00 07:16 Temperature Pulse Rate 79 84 85 Pulse Rate [ From Monitor] Respiratory 17 15 15 Rate Blood Pressure 84/45 85/53 85/53 O2 Sat by Pulse 98 100 100 Oximetry 05/11/22 05/11/22 05/11/22 07:30 07:35 07:46 Temperature 98.1 F Pulse Rate 82 84 Pulse Rate [ From Monitor] Respiratory 14 15 Rate Blood Pressure 91/52 91/52 O2 Sat by Pulse 98 100 Oximetry 05/11/22 05/11/22 05/11/22 08:00 08:16 08:30 Temperature Pulse Rate 81 79 83 Pulse Rate [ 83 From Monitor] Respiratory 18 15 14 Rate Blood Pressure 90/58 90/58 90/58 O2 Sat by Pulse 100 100 100 Oximetry 05/11/22 08:47 Temperature Pulse Rate Pulse Rate [ From Monitor] Respiratory Rate Blood Pressure O2 Sat by Pulse 99 Oximetry - General Appearance General appearance: well-developed EENT: ATNC, PERRL Neck: no JVD, no carotid bruit Respiratory: Present: Clear to Ascultation Cardiology: regular, S1S2 Integumentary: no rash Neurologic: no focal deficit, no asterixis Musculoskeletal: deferred Psychiatric: mood/affect appropriate - Lab 05/08/22 05:35 05/11/22 06:00 Most recent lab results ABG pH 7.546 pH Units (7.350-7.450) H 05/10/22 09:00 ABG pCO2 26.3 mm Hg 05/10/22 09:00 ABG pO2 104.0 mm Hg (80.0-90.0) H 05/10/22 09:00 ABG HCO3 22.3 mmol/L (20.0-26.0) 05/10/22 09:00 ABG O2 Saturation 98.2 % (95.0-99.0) 05/10/22 09:00 Calcium 7.7 mg/dL (8.4-10.2) L 05/11/22 06:00 Phosphorus 4.40 mg/dL (2.5-4.5) 05/08/22 04:00 Magnesium 1.80 mg/dL (1.7-2.3) 05/10/22 04:34 Medications & Allergies - Medications Allergies/Adverse Reactions: Allergies No Known Allergies Allergy (Verified 05/07/22 02:32) Active Medications: Generic Name Dose Route Start Last Admin Trade Name Freq PRN Reason Stop Dose Admin Acetaminophen 650 mg 05/07/22 05:25 Acetaminophen 325 Mg Tab PO Q4H PRN Pain MILD(1-3)/Fever >100.5/ROSAS Albuterol 2.5 mg 05/07/22 05:31 Albuterol 2.5 Mg/3 Ml Nebu IH Q3HRT PRN Shortness Of Breath Lipase/Protease/Amylase 1 each 05/09/22 08:00 Lipase 10,500/Protease 25,000/Amylase 43,750 (Units) Dr Dunne FEEDTUBE PRN PRN For Clogged Feeding Tube Aspirin 81 mg 05/09/22 10:00 05/10/22 10:21 Aspirin 81 Mg Tab Chew FEEDTUBE Not Given QDAY RIKI Atorvastatin Calcium 40 mg 05/07/22 22:00 05/10/22 22:50 Atorvastatin 40 Mg Tab PO Not Given QHS RIKI Dextrose 50 ml 05/10/22 13:19 Dextrose 50% In Water (25gm) 50 Ml Syringe IV Q30MIN PRN Hypoglycemia Protocol Famotidine 20 mg 05/07/22 10:00 05/10/22 10:21 Famotidine 20 Mg/2 Ml Inj IV Not Given QAM RIKI Sodium Bicarbonate 150 meq/ 1,150 mls @ 125 mls/hr 05/09/22 10:00 05/10/22 07:19 Dextrose IV 125 mls/hr DIRECT RIKI Administration Dextrose/Sodium Chloride 1,000 mls @ 75 mls/hr 05/10/22 14:00 05/11/22 07:15 D5/0.45ns IV 75 mls/hr DIRECT RIKI Administration Insulin Human Lispro 0 unit 05/10/22 18:00 05/11/22 07:09 Insulin Lispro 100 Unit/Ml SUB-Q Not Given Q6HR [facility] [place] Protocol Morphine Sulfate 2 mg 05/07/22 05:25 05/10/22 18:33 Morphine 2 Mg/1 Ml Inj IV 2 mg Q4H PRN Administration Pain, Moderate (4-6) Ondansetron HCl 4 mg 05/07/22 05:25 Ondansetron 4 Mg/2 Ml Inj IV Q8H PRN Nausea And Vomiting Simple Syrup 15 ml 05/09/22 08:00 Simple Syrup 15 Ml FEEDTUBE PRN PRN Hypoglycemia Simple Syrup 30 ml 05/09/22 08:00 Simple Syrup 15 Ml FEEDTUBE PRN PRN Hypoglycemia Sodium Bicarbonate 325 mg 05/09/22 08:00 Sodium Bicarbonate 325 Mg Tab FEEDTUBE PRN PRN For Clogged Feeding Tube Sodium Chloride 10 ml 05/07/22 05:25 Sodium Chloride 0.9% 10 Ml Flush Syringe IV PRN PRN LINE FLUSH Sodium Chloride 10 ml 05/07/22 10:00 05/10/22 22:51 Sodium Chloride 0.9% 10 Ml Flush Syringe IV 10 ml BID RIKI Administration
--- NOTE | 2022-05-11 10:10 | Progress Note ---
History Interval history: Patient seen and examined, remains lethargic not following any commands, son still does not want aggressive therapy, once they arrice Hospitalist Physical - Physical exam Narrative exam: General appearance: Present: mild distress, cachectic (Noncommunicative, mild agitation), - EENT ENT: other (Oral mucosa dry) - Neck Neck: Present: supple, normal ROM - Respiratory Respiratory: bilateral: diminished, negative: rales, rhonchi, wheezing - Cardiovascular Rhythm: regular Heart Sounds: Present: S1 & S2 - Extremities Extremities: no ischemia, No edema - Abdominal General gastrointestinal: soft, non-tender, non-distended, normal bowel sounds - Integumentary Integumentary: Present: clear, warm - Psychiatric Psychiatric: other (Noncommunicative) - Neurologic Neurologic: other (Acute CVA with residual weakness, unable to assess) - Constitutional Vitals: Temp Pulse Resp BP Pulse Ox 98.1 F 83 14 90/58 99 05/11/22 07:35 05/11/22 08:30 05/11/22 08:30 05/11/22 08:30 05/11/22 08:47 General appearance: Present: mild distress, cachectic (Noncommunicative, mild agitation), other Results - Labs CBC & Chem 7: 05/08/22 05:35 05/11/22 06:00 Labs: Laboratory Last Values WBC 10.6 K/mm3 (4.5-11.0) 05/08/22 05:35 RBC 3.72 M/mm3 (3.65-5.03) 05/08/22 05:35 Hgb 9.7 gm/dl (10.1-14.3) L 05/08/22 05:35 Hct 29.8 % (30.3-42.9) L 05/08/22 05:35 MCV 80 fl (79-97) 05/08/22 05:35 MCH 26 pg (28-32) L 05/08/22 05:35 MCHC 33 % (30-34) 05/08/22 05:35 RDW 21.4 % (13.2-15.2) H 05/08/22 05:35 Plt Count 126 K/mm3 (140-440) L 05/08/22 05:35 Lymph % (Auto) 6.7 % (13.4-35.0) L 05/08/22 05:35 [place] % (Auto) 4.1 % (0.0-7.3) 05/08/22 05:35 Eos % (Auto) 0.0 % (0.0-4.3) 05/08/22 05:35 Baso % (Auto) 0.1 % (0.0-1.8) 05/08/22 05:35 Lymph # (Auto) 0.7 K/mm3 (1.2-5.4) L 05/08/22 05:35 [place] # (Auto) 0.4 K/mm3 (0.0-0.8) 05/08/22 05:35 Eos # (Auto) 0.0 K/mm3 (0.0-0.4) 05/08/22 05:35 Baso # (Auto) 0.0 K/mm3 (0.0-0.1) 05/08/22 05:35 Seg Neutrophils % 89.1 % (40.0-70.0) H 05/08/22 05:35 Seg Neutrophils # 9.4 K/mm3 (1.8-7.7) H 05/08/22 05:35 PT 17.8 Sec. (12.2-14.9) H 05/07/22 03:40 INR 1.31 (0.87-1.13) H 05/07/22 03:40 APTT 26.2 Sec. (24.2-36.6) 05/07/22 03:40 ABG pH 7.546 pH Units (7.350-7.450) H 05/10/22 09:00 ABG pCO2 26.3 mm Hg 05/10/22 09:00 ABG pO2 104.0 mm Hg (80.0-90.0) H 05/10/22 09:00 ABG HCO3 22.3 mmol/L (20.0-26.0) 05/10/22 09:00 ABG O2 Saturation 98.2 % (95.0-99.0) 05/10/22 09:00 ABG O2 Content 9.9 (0.0-44) 05/10/22 09:00 ABG Base Excess 0.1 mmol/L (-2.0-3.0) 05/10/22 09:00 ABG Hemoglobin 7.1 gm/dl (12.0-16.0) L 05/10/22 09:00 ABG Carboxyhemoglobin 1.2 % (0.0-5.0) 05/10/22 09:00 ABG Methemoglobin 0.4 % (0.0-1.5) 05/10/22 09:00 Oxyhemoglobin 96.7 % (95.0-99.0) 05/10/22 09:00 FiO2 21 % 05/10/22 09:00 Sodium 141 mmol/L (137-145) 05/11/22 06:00 Potassium 3.5 mmol/L (3.6-5.0) L 05/11/22 06:00 Chloride 99.2 mmol/L (98-107) 05/11/22 06:00 Carbon Dioxide 24 mmol/L (22-30) 05/11/22 06:00 Anion Gap 21 mmol/L 05/11/22 06:00 BUN 64 mg/dL (7-17) H 05/11/22 06:00 Creatinine 3.6 mg/dL (0.6-1.2) H 05/11/22 06:00 Estimated GFR 12 ml/min 05/11/22 06:00 BUN/Creatinine Ratio 18 % 05/11/22 06:00 Glucose 156 mg/dL (65-100) H 05/11/22 06:00 POC Glucose 130 mg/dL (70-105) H 05/10/22 17:41 Lactic Acid 1.70 mmol/L (0.7-2.0) 05/09/22 Unknown Calcium 7.7 mg/dL (8.4-10.2) L 05/11/22 06:00 Phosphorus 4.40 mg/dL (2.5-4.5) 05/08/22 04:00 Magnesium 1.80 mg/dL (1.7-2.3) 05/10/22 04:34 Total Bilirubin 1.00 mg/dL (0.1-1.2) 05/07/22 03:40 AST 70 units/L (5-40) H 05/07/22 03:40 ALT 22 units/L (7-56) 05/07/22 03:40 Alkaline Phosphatase 96 units/L (35-129) 05/07/22 03:40 Ammonia 17.0 umol/L (25-60) L 05/07/22 03:40 Total Protein 6.6 g/dL (6.3-8.2) 05/07/22 03:40 Albumin 3.9 g/dL (3.9-5) 05/07/22 03:40 Albumin/Globulin Ratio 1.4 % 05/07/22 03:40 Prealbumin 0.121 g/L (0.200-0.400) L 05/07/22 09:53 Triglycerides 344 mg/dL (2-149) H 05/07/22 06:00 Cholesterol 220 mg/dL (50-199) H 05/07/22 06:00 LDL Cholesterol Direct 116 mg/dL (50-130) 05/07/22 06:00 HDL Cholesterol 36 mg/dL (40-59) L 05/07/22 06:00 Cholesterol/HDL Ratio 6.11 % 05/07/22 06:00 Vitamin B12 518.1 pg/mL (211-911) 05/07/22 09:53 Folate 2.86 ng/mL (7.3-26.0) L 05/07/22 09:53 TSH 1.640 mlU/mL (0.270-4.200) 05/07/22 09:53 Urine Color Brown (Yellow) 05/07/22 04:55 Urine Turbidity Slightly cloudy (Clear) 05/07/22 04:55 Specific [place] (Man) 1.025 (1.003-1.030) 05/07/22 04:55 Ur Protein (Man) 1+ mg/dL (Negative) 05/07/22 04:55 Ur Ketones (Man) Negative (Negative) 05/07/22 04:55 Ur Nitrite (Man) Negative (Negative) 05/07/22 04:55 Urine Bilirubin (Man) Color interference (Negative) 05/07/22 04:55 Urine Ictotest Negative (Negative) 05/07/22 04:55 Leukocyte Esterase (Man) Negative (Negative) 05/07/22 04:55 Urine WBC (Auto) 5.0 /HPF (0.0-6.0) 05/07/22 04:55 Urine RBC (Auto) 7.0 /HPF (0.0-6.0) 05/07/22 04:55 U Epithel Cells (Auto) 8.0 /HPF (0-13.0) 05/07/22 04:55 Urine Bacteria (Auto) 1+ /HPF (Negative) 05/07/22 04:55 Urine RBC (Manual) 1+ (Negative) 05/07/22 04:55 Hyaline Casts 9 /LPF 05/07/22 04:55 Granular Casts 4 /LPF 05/07/22 04:55 Urine Mucus 2+ /HPF 05/07/22 04:55 Urine Yeast (Budding) 3+ /HPF 05/07/22 04:55 Urine Eosinophils None seen (None Seen) 05/09/22 11:00 Urine Opiates Screen Presumptive negative 05/07/22 04:55 Urine Methadone Screen Presumptive negative 05/07/22 04:55 Ur Barbiturates Screen Presumptive negative 05/07/22 04:55 Ur Phencyclidine Scrn Presumptive negative 05/07/22 04:55 Ur Amphetamines Screen Presumptive negative 05/07/22 04:55 U Benzodiazepines Scrn Presumptive negative 05/07/22 04:55 Urine Cocaine Screen Presumptive negative 05/07/22 04:55 U Marijuana (THC) Screen Presumptive negative 05/07/22 04:55 Drugs of Abuse Note Disclamer 05/07/22 04:55 Copper 143 mcg/dL (70-175) 05/07/22 09:53 Hepatitis A IgM Ab Non-reactive (NonReactive) 05/09/22 07:11 Hep Bs Antigen Non-reactive (Negative) 05/09/22 07:11 Hep B Core IgM Ab Non-reactive (NonReactive) 05/09/22 07:11 Hepatitis C Antibody Non-reactive (NonReactive) 05/09/22 07:11 Microbiology: Microbiology 05/09/22 20:05 Peripheral/Venous Blood Culture - Preliminary NO GROWTH AFTER 24 HOURS 05/09/22 20:05 Peripheral/Venous Blood Culture - Preliminary NO GROWTH AFTER 24 HOURS Jean/IV: Voiding Method Indwelling Catheter Active Medications - Current Medications Current Medications: Generic Name Dose Route Start Last Admin Trade Name Freq PRN Reason Stop Dose Admin Acetaminophen 650 mg 05/07/22 05:25 Acetaminophen 325 Mg Tab PO Q4H PRN Pain MILD(1-3)/Fever >100.5/ROSAS Albuterol 2.5 mg 05/07/22 05:31 Albuterol 2.5 Mg/3 Ml Nebu IH Q3HRT PRN Shortness Of Breath Lipase/Protease/Amylase 1 each 05/09/22 08:00 Lipase 10,500/Protease 25,000/Amylase 43,750 (Units) Dr Dunne FEEDTUBE PRN PRN For Clogged Feeding Tube Aspirin 81 mg 05/09/22 10:00 05/10/22 10:21 Aspirin 81 Mg Tab Chew FEEDTUBE Not Given QDAY [facility] Atorvastatin Calcium 40 mg 05/07/22 22:00 05/10/22 22:50 Atorvastatin 40 Mg Tab PO Not Given QHS [facility] Dextrose 50 ml 05/10/22 13:19 Dextrose 50% In Water (25gm) 50 Ml Syringe IV Q30MIN PRN Hypoglycemia Protocol Famotidine 20 mg 05/07/22 10:00 05/10/22 10:21 Famotidine 20 Mg/2 Ml Inj IV Not Given QAM [facility] Sodium Bicarbonate 150 meq/ 1,150 mls @ 125 mls/hr 05/09/22 10:00 05/10/22 07:19 Dextrose IV 125 mls/hr DIRECT [facility] Administration Insulin Human Lispro 0 unit 05/10/22 18:00 05/11/22 07:09 Insulin Lispro 100 Unit/Ml SUB-Q Not Given Q6HR [facility] Protocol Morphine Sulfate 2 mg 05/07/22 05:25 05/10/22 18:33 Morphine 2 Mg/1 Ml Inj IV 2 mg Q4H PRN Administration Pain, Moderate (4-6) Ondansetron HCl 4 mg 05/07/22 05:25 Ondansetron 4 Mg/2 Ml Inj IV Q8H PRN Nausea And Vomiting Simple Syrup 15 ml 05/09/22 08:00 Simple Syrup 15 Ml FEEDTUBE PRN PRN Hypoglycemia Simple Syrup 30 ml 05/09/22 08:00 Simple Syrup 15 Ml FEEDTUBE PRN PRN Hypoglycemia Sodium Bicarbonate 325 mg 05/09/22 08:00 Sodium Bicarbonate 325 Mg Tab FEEDTUBE PRN PRN For Clogged Feeding Tube Sodium Chloride 10 ml 05/07/22 05:25 Sodium Chloride 0.9% 10 Ml Flush Syringe IV PRN PRN LINE FLUSH Sodium Chloride 10 ml 05/07/22 10:00 05/10/22 22:51 Sodium Chloride 0.9% 10 Ml Flush Syringe IV 10 ml BID IRKI Administration Nutrition/Malnutrition Assess - Dietary Evaluation Nutrition/Malnutrition Findings: Nutrition Notes Start: 05/08/22 15:56 Freq: Status: Active Protocol: Document 05/09/22 14:38 CM (Rec: 05/09/22 14:47 CM [id number]) Co-Sign 05/09/22 14:38 WW Nutrition Notes Need for Assessment generated from: MD Order Initial or Follow up Brief Note Current Diagnosis Acute Kidney Injury,CKD (stage V CKD),Sepsis,Stroke Other Pertinent Diagnosis AMS, Alzheimer's dementia, hypotension Labs/Tests 05/09: CO2 10 BUN 76 Cr 4.9 Pertinent Medications Reviewed Height 5 ft 4 in Weight 56 kg [place] Body Weight (kg) 54.54 BMI 21.2 Weight Status Appropriate Subjective/Other Information RD consult for write/manage tube feeding. Pt is NPO. Distal tip of DHT terminates in lower lobe of bronchus. Replacement recommended per Abdomen XR 05/09. DHT repositioned per RN and awaiting confirmation XR. Abdomen flat, soft, non-tender , non-distended w/ BS+ per progress notes. Enteral nutrition recommendations remain the same as yesterday. See below. Percent of energy/protein needs met: Pt is currently on NPO. When pertinent, start with prescribed TF-Nepro w/ CARBSTEADY @ 35 ml/hr provides for energy/protein needs (1, 495 Kcal/67 g) during LOS, 102 % Kcal; 100% AA. Burn Absent Trauma Absent GI Symptoms Other Difficulty In Swallowing Food Allergy No Skin Integrity/Comment WNL Current % PO Other #1 Nutrition Diagnosis Swallowing difficulty Diagnosis Progress(for reassessment Continues documentation) Kcal/Kg value to use for calculation 26 Approximate Energy Requirements Using 1456 kcal/Kg Calculation Used for Recommendations Kcal/kg Additional Notes Protein: 0.8-1.2 g/Kg ABW; 45- 67 g/day. Fluids: 1 ml/Kcal, or as per MD. Nutrition Intervention Nutrition Support: When pertinent, start TF-Nepro w/CARBSTEADY @ 35 ml/hr. Flush: 140 ml water Q 4 hr, or as per MD. Kcal 1,495 Protein (gm) 67 Carbohydrates (gm) 134 Fat (gm) 80 Fluid (mL) 604 Fiber (gm) 10 % RDI: 102%kcal/100% AA Goal #1 Pt to intiate and tolerate >75 % of estimated energy/protein needs through enteral nutrition. Follow-Up By: 05/11/22 Additional Comments When pertinent, start monitoring TF tolerance, HD initiation, and BM.
[2022-05-11] MEDS: FAMOTIDINE 20 MG/2 ML INJ IV SCH (10:45)
[2022-05-11] MEDS: ASPIRIN 81 MG TAB CHEW FEEDTUBE SCH (13:01)
[2022-05-11] MEDS ORDERED: D5W/0.45% NACL 1,000 ML IV SCH (17:00)
[2022-05-12] MEDS: INSULIN LISPRO 100 UNIT/ML SUB-Q SCH ×4 (00:30→18:06)
[2022-05-12] MEDS ORDERED: SODIUM CHLORIDE 0.9% 1000 ML 1,000 ML IV ONE (04:25)
[2022-05-12] MEDS: NORepinephrine/NS 8 MG-250 ML 8 MG/250 ML INFUS..BTL IV SCH ×2 (05:24→16:46)
[2022-05-12] MEDS: D5W/0.45% NACL 1,000 ML IV SCH ×3 (05:44→20:53)
--- NOTE | 2022-05-12 08:06 | Cat Scan Report ---
CT CHEST WITHOUT CONTRAST INDICATION / CLINICAL INFORMATION: Right upper lobe lung mass on x-ray. TECHNIQUE: Axial CT images were obtained through the chest without contrast. All CT scans at this [facility] ation are performed using CT dose reduction for ALARA by means of automated exposure control. COMPARISON: AP chest 05/07/2022 FINDINGS: HEART: No significant abnormality. CORONARY ARTERY CALCIFICATION: Present -- Severe. THORACIC AORTA: Mild atherosclerotic calcification without acute abnormality. MEDIASTINUM / JULIO C: Small amount of pneumomediastinum in the anterior and superior mediastinum is pre sent and not significantly changed since the previous CT cervical spine. The etiology of this is not clearly evident. PLEURA: No pleural effusion. No pneumothorax. LUNGS: There is mild subpleural septal thickening throughout both lungs consistent with chronic inter stitial changes. No suspicious pulmonary nodule or mass is detected. Previously described right upper lobe opacity appears to represent segmental atelectasis along the major fissure. No evidence for acu te infiltrate. ADDITIONAL FINDINGS: None. UPPER ABDOMEN: Nothing acute. The left kidney is mildly atrophic. SKELETAL SYSTEM: Osteopenia. There is moderate multilevel thoracic spondylosis. No evidence for acute fracture or bone lesion. IMPRESSION: 1. No evidence for lung mass. See above. 2. Mild chronic interstitial changes in both lungs. 3. Small pneumomediastinum as described. 4. Mild left renal atrophy. Signer Name: Marek Gorman Jr, MD Signed: 05/09/2022 10:41 AM Workstation Name: [id number]
--- NOTE | 2022-05-12 09:32 | Progress Note ---
Assessment and Plan Assessment and plan: 72-year-old female with a history of Alzheimer dementia and most likely chronic kidney disease was brought in by EMS with altered mental status that was noticed after patient was found sitting on the toilet bowl for about 7 hours covered in feces. No fever or chills reported. Patient noted to be hypotensive on presentation. No other modifying or associated factors reported. In the emergency room patient is found to have BUN of 67, creatinine 5.1, lactic acid 3.30, WBC 11.6, CT scan of the head shows large area of edema noted throughout the right occipital lobe most likely representing subacute CVA. Edema due to underlying mass is thought to be much less likely but should be confirmed with MRI. Old lacunar infarct within the right basal ganglia and right thalamus. Chest x-ray shows right upper lobe 1.3 cm pulmonary opacity possibly representing lung mass. Chest CT is suggested. --Patient failed swallow evaluation, pending speech and swallow eval Meanwhile patient needs medications, diet, will place Dobbhoff for medications and tube feeding -- Patient unable to urinate by pure wick/place Jean catheter, input output monitoring Urine analysis and urine cultures 05/10: Patient was transfered to [facility], Son at bedside made the patient a DNR, he wants to hold off on PEG AND PLACEMENT and speak with Neurology on thursday about possiblity of recovery. He will also make a decision about Hospice at that time. He understands the dynamics of the medical condition and how things can change Will start D5 1/2 NS in the mean time. Renal function abnormality discussed with son in detail Aspiration precautions, I also discussed the Hypotensive episode and the possible NEED FOR PRESSORS. He Verbalized understanding 45mins spent on care coordination in addition to time spent on direct patient care cct 80mins 05/12: Imaging and clinical findings reviewed with patient LUZ MARIA, son Taz Diaz. He also requested neurology input as well as nephrology input regarding his mother. Neurology recommend SNF with trach peg instead of hospice. Son would like all aggressive management with pressors/medication but NOT CPR OR INTUBATION. Blood pressure also noted to be low. Will transfer patient to icu with levophed ordered for BP. Placed central line. CCM consulted. CM aware of POA's wishes. --Acute CVA (cerebral vascular accident) large acute right [employer] distribution CVA Aspirin 81 mg p.o. daily. Lipitor 40 mg p.o. daily. Failed speech and swallow evaluation Numerous attempts to place Dobbhoff, unsuccessful Work-up so far: CT head without contrast;Large area of edema noted throughout the right occipital lobe most likely representing subacute CVA Old lacunar infarctions within the right basal ganglia and right thalamus MRI of the brain Large acute to subacute ischemic infarct at the right [employer]IM[employer] distribution volume loss, chronic ischemic changes and white matter MRA; brain; Occluded right posterior cerebral artery correlates with the area of ischemia seen on MRI brain Echocardiogram; EF 50-55 percent, no PFO Chest x-ray;Right upper lobe 1.3 cm pulmonary opacity possibly representing lung mass CT chest requested Renal ultrasound; CT cervical spine: no acute injury moderate multilevel cervical spondylosis pneumomediastinum small amount CT chest requested Left femur no acute abnormality, osteopenia left ankle; no abnormality osteopenia Left foot no acute abnormality osteopenia --Acute metabolic encephalopathy Most likely secondary to CVA and FRANTZ. We will monitor the patient closely. Oxygen by nasal cannula 3 L/min. DuoNeb via nebulizer every 4 hours as needed. IV fluid normal saline at the rate of 125 cc/h. We will monitor the patient closely. Neurology evaluation --- Hypotension/borderline Normal saline at the rate of 125 cc/h. Blood pressures improved, normal range CVC placed, started on levophed. CCM consulted. -- FRANTZ (acute kidney injury) Avoid nephrotoxic drug. Renally dose medication. Normal saline at the rate of 125 cc/h. Nephrology evaluation. Recheck BMP in the morning --Severe metabolic acidosis Management per nephrology Continue bicarb drip - Alzheimer's dementia -- We will monitor the patient closely. Supportive care MRI of the brain. Neurology evaluation --Right lung mass; incidental right upper lobe 1.3 cm lung mass noted on CT neck CT chest requested. Consult pulmonary if needed - Sepsis; Probably UTI Normal saline at the rate of 125 cc/h. Cefepime 2 g IV daily. Follow cultures --DVT prophylaxis SCD for DVT prophylaxis. Pepcid 20 mg IV every 12 hours for GI prophylaxis. Patient is a full code --full code: Closely monitor the patient and adjust management as needed Plan of care reviewed with the patient and her nurse [employer] Merchandising Associate recommendations noted and appreciated Patient is critically ill, I discussed in detail extensively with patient's son Mr. Joe Mcghee at the bedside Patient's seizures condition, tests and reports, treatment plan, very poor prognosis in view of large stroke And worsening renal function pending hemodialysis, altered level of consciousness, metabolic acidosis Had many questions I answered all of them, verbalized understanding The high probability of a clinically significant, sudden or life threatening deterioration of the [multi] system(s) required my full and direct attention, intervention and personal management. The aggregate critical care time was [62] minutes. This time is in addition to time spent performing reported procedures but includes the following: [x] Data Review and interpretation [x] Patient assessment and monitoring of vital signs [x] Documentation [x] Medication orders and management History Interval history: Moaning on occasion. Son at bedside. spoke at length regarding clinical status. Patient noncommunicative, guards to pain, occasionally tracks with eyes but not purposefully. Protecting airway. Hospitalist Physical - Physical exam Narrative exam: - Physical exam Narrative exam: General appearance: Present: mild distress, cachectic (Noncommunicative, mild agitation), - EENT ENT: other (Oral mucosa dry) - Neck Neck: Present: supple, normal ROM - Respiratory Respiratory: bilateral: diminished, negative: rales, rhonchi, wheezing - Cardiovascular Rhythm: regular Heart Sounds: Present: S1 & S2 - Extremities Extremities: no ischemia, No edema - Abdominal General gastrointestinal: soft, non-tender, non-distended, normal bowel sounds - Integumentary Integumentary: Present: clear, warm - Psychiatric Psychiatric: other (Noncommunicative) - Neurologic Neurologic: other (Acute CVA with residual weakness, unable to assess) - Constitutional Vitals: Temp Pulse Resp BP Pulse Ox 98.9 F 111 H 16 111/75 100 05/12/22 07:31 05/12/22 09:00 05/12/22 09:00 05/12/22 09:00 05/12/22 09:00 General appearance: Present: mild distress, cachectic (Noncommunicative, mild agitation), other Results - Labs CBC & Chem 7: 05/08/22 05:35 05/11/22 06:00 Labs: Laboratory Last Values WBC 10.6 K/mm3 (4.5-11.0) 05/08/22 05:35 RBC 3.72 M/mm3 (3.65-5.03) 05/08/22 05:35 Hgb 9.7 gm/dl (10.1-14.3) L 05/08/22 05:35 Hct 29.8 % (30.3-42.9) L 05/08/22 05:35 MCV 80 fl (79-97) 05/08/22 05:35 MCH 26 pg (28-32) L 05/08/22 05:35 MCHC 33 % (30-34) 05/08/22 05:35 RDW 21.4 % (13.2-15.2) H 05/08/22 05:35 Plt Count 126 K/mm3 (140-440) L 05/08/22 05:35 Lymph % (Auto) 6.7 % (13.4-35.0) L 05/08/22 05:35 [place] % (Auto) 4.1 % (0.0-7.3) 05/08/22 05:35 Eos % (Auto) 0.0 % (0.0-4.3) 05/08/22 05:35 Baso % (Auto) 0.1 % (0.0-1.8) 05/08/22 05:35 Lymph # (Auto) 0.7 K/mm3 (1.2-5.4) L 05/08/22 05:35 [place]y # (Auto) 0.4 K/mm3 (0.0-0.8) 05/08/22 05:35 Eos # (Auto) 0.0 K/mm3 (0.0-0.4) 05/08/22 05:35 Baso # (Auto) 0.0 K/mm3 (0.0-0.1) 05/08/22 05:35 Seg Neutrophils % 89.1 % (40.0-70.0) H 05/08/22 05:35 Seg Neutrophils # 9.4 K/mm3 (1.8-7.7) H 05/08/22 05:35 PT 17.8 Sec. (12.2-14.9) H 05/07/22 03:40 INR 1.31 (0.87-1.13) H 05/07/22 03:40 APTT 26.2 Sec. (24.2-36.6) 05/07/22 03:40 ABG pH 7.546 pH Units (7.350-7.450) H 05/10/22 09:00 ABG pCO2 26.3 mm Hg 05/10/22 09:00 ABG pO2 104.0 mm Hg (80.0-90.0) H 05/10/22 09:00 ABG HCO3 22.3 mmol/L (20.0-26.0) 05/10/22 09:00 ABG O2 Saturation 98.2 % (95.0-99.0) 05/10/22 09:00 ABG O2 Content 9.9 (0.0-44) 05/10/22 09:00 ABG Base Excess 0.1 mmol/L (-2.0-3.0) 05/10/22 09:00 ABG Hemoglobin 7.1 gm/dl (12.0-16.0) L 05/10/22 09:00 ABG Carboxyhemoglobin 1.2 % (0.0-5.0) 05/10/22 09:00 ABG Methemoglobin 0.4 % (0.0-1.5) 05/10/22 09:00 Oxyhemoglobin 96.7 % (95.0-99.0) 05/10/22 09:00 FiO2 21 % 05/10/22 09:00 Sodium 141 mmol/L (137-145) 05/11/22 06:00 Potassium 3.5 mmol/L (3.6-5.0) L 05/11/22 06:00 Chloride 99.2 mmol/L (98-107) 05/11/22 06:00 Carbon Dioxide 24 mmol/L (22-30) 05/11/22 06:00 Anion Gap 21 mmol/L 05/11/22 06:00 BUN 64 mg/dL (7-17) H 05/11/22 06:00 Creatinine 3.6 mg/dL (0.6-1.2) H 05/11/22 06:00 Estimated GFR 12 ml/min 05/11/22 06:00 BUN/Creatinine Ratio 18 % 05/11/22 06:00 Glucose 156 mg/dL (65-100) H 05/11/22 06:00 POC Glucose 274 mg/dL (70-105) H 05/12/22 00:18 Lactic Acid 1.70 mmol/L (0.7-2.0) 05/09/22 Unknown Calcium 7.7 mg/dL (8.4-10.2) L 05/11/22 06:00 Phosphorus 4.40 mg/dL (2.5-4.5) 05/08/22 04:00 Magnesium 1.80 mg/dL (1.7-2.3) 05/10/22 04:34 Total Bilirubin 1.00 mg/dL (0.1-1.2) 05/07/22 03:40 AST 70 units/L (5-40) H 05/07/22 03:40 ALT 22 units/L (7-56) 05/07/22 03:40 Alkaline Phosphatase 96 units/L (35-129) 05/07/22 03:40 Ammonia 17.0 umol/L (25-60) L 05/07/22 03:40 Total Protein 6.6 g/dL (6.3-8.2) 05/07/22 03:40 Albumin 3.9 g/dL (3.9-5) 05/07/22 03:40 Albumin/Globulin Ratio 1.4 % 05/07/22 03:40 Prealbumin 0.121 g/L (0.200-0.400) L 05/07/22 09:53 Triglycerides 344 mg/dL (2-149) H 05/07/22 06:00 Cholesterol 220 mg/dL (50-199) H 05/07/22 06:00 LDL Cholesterol Direct 116 mg/dL (50-130) 05/07/22 06:00 HDL Cholesterol 36 mg/dL (40-59) L 05/07/22 06:00 Cholesterol/HDL Ratio 6.11 % 05/07/22 06:00 Vitamin B1 <6 nmol/L (8-30) L 05/07/22 09:53 Vitamin B12 518.1 pg/mL (211-911) 05/07/22 09:53 Folate 2.86 ng/mL (7.3-26.0) L 05/07/22 09:53 TSH 1.640 mlU/mL (0.270-4.200) 05/07/22 09:53 Urine Color Brown (Yellow) 05/07/22 04:55 Urine Turbidity Slightly cloudy (Clear) 05/07/22 04:55 Specific [place] (Man) 1.025 (1.003-1.030) 05/07/22 04:55 Ur Protein (Man) 1+ mg/dL (Negative) 05/07/22 04:55 Ur Ketones (Man) Negative (Negative) 05/07/22 04:55 Ur Nitrite (Man) Negative (Negative) 05/07/22 04:55 Urine Bilirubin (Man) Color interference (Negative) 05/07/22 04:55 Urine Ictotest Negative (Negative) 05/07/22 04:55 Leukocyte Esterase (Man) Negative (Negative) 05/07/22 04:55 Urine WBC (Auto) 5.0 /HPF (0.0-6.0) 05/07/22 04:55 Urine RBC (Auto) 7.0 /HPF (0.0-6.0) 05/07/22 04:55 U Epithel Cells (Auto) 8.0 /HPF (0-13.0) 05/07/22 04:55 Urine Bacteria (Auto) 1+ /HPF (Negative) 05/07/22 04:55 Urine RBC (Manual) 1+ (Negative) 05/07/22 04:55 Hyaline Casts 9 /LPF 05/07/22 04:55 Granular Casts 4 /LPF 05/07/22 04:55 Urine Mucus 2+ /HPF 05/07/22 04:55 Urine Yeast (Budding) 3+ /HPF 05/07/22 04:55 Urine Eosinophils None seen (None Seen) 05/09/22 11:00 Urine Opiates Screen Presumptive negative 05/07/22 04:55 Urine Methadone Screen Presumptive negative 05/07/22 04:55 Ur Barbiturates Screen Presumptive negative 05/07/22 04:55 Ur Phencyclidine Scrn Presumptive negative 05/07/22 04:55 Ur Amphetamines Screen Presumptive negative 05/07/22 04:55 U Benzodiazepines Scrn Presumptive negative 05/07/22 04:55 Urine Cocaine Screen Presumptive negative 05/07/22 04:55 U Marijuana (THC) Screen Presumptive negative 05/07/22 04:55 Drugs of Abuse Note Disclamer 05/07/22 04:55 Copper 143 mcg/dL (70-175) 05/07/22 09:53 Hepatitis A IgM Ab Non-reactive (NonReactive) 05/09/22 07:11 Hep Bs Antigen Non-reactive (Negative) 05/09/22 07:11 Hep B Core IgM Ab Non-reactive (NonReactive) 05/09/22 07:11 Hepatitis C Antibody Non-reactive (NonReactive) 05/09/22 07:11 Microbiology: Microbiology 05/09/22 20:05 Peripheral/Venous Blood Culture - Preliminary NO GROWTH AFTER 48 HOURS 05/09/22 20:05 Peripheral/Venous Blood Culture - Preliminary NO GROWTH AFTER 48 HOURS Jean/IV: Voiding Method Indwelling Catheter Active Medications - Current Medications Current Medications: Generic Name Dose Route Start Last Admin Trade Name Freq PRN Reason Stop Dose Admin Acetaminophen 650 mg 05/07/22 05:25 Acetaminophen 325 Mg Tab PO Q4H PRN Pain MILD(1-3)/Fever >100.5/ROSAS Albuterol 2.5 mg 05/07/22 05:31 Albuterol 2.5 Mg/3 Ml Nebu IH Q3HRT PRN Shortness Of Breath Lipase/Protease/Amylase 1 each 05/09/22 08:00 Lipase 10,500/Protease 25,000/Amylase 43,750 (Units) Dr Dunne FEEDTUBE PRN PRN For Clogged Feeding Tube Aspirin 81 mg 05/09/22 10:00 05/11/22 13:01 Aspirin 81 Mg Tab Chew FEEDTUBE Not Given QDAY RIKI Atorvastatin Calcium 40 mg 05/07/22 22:00 05/11/22 22:45 Atorvastatin 40 Mg Tab PO Not Given QHS RIKI Dextrose 50 ml 05/10/22 13:19 Dextrose 50% In Water (25gm) 50 Ml Syringe IV Q30MIN PRN Hypoglycemia Protocol Famotidine 20 mg 05/07/22 10:00 05/11/22 10:45 Famotidine 20 Mg/2 Ml Inj IV 20 mg QAM RIKI Administration Dextrose/Sodium Chloride 1,000 mls @ 100 mls/hr 05/12/22 05:00 05/12/22 05:44 D5/0.45ns IV 100 mls/hr DIRECT RIKI Administration NORepinephrine/NS 8 MG-250 ML 8 mg in 250 mls @ 11.306 mls/hr 05/12/22 06:00 05/12/22 05:56 Norepinephrine/Ns 8 Mg-250 Ml (Double Conc) IV 0.07 mcg/kg/min TITRATE RIKI 7.914 mls/hr Titration Protocol 0.1 MCG/KG/MIN Insulin Human Lispro 0 unit 05/10/22 18:00 05/12/22 05:42 Insulin Lispro 100 Unit/Ml SUB-Q Not Given Q6HR [facility] Protocol Morphine Sulfate 2 mg 05/07/22 05:25 05/10/22 18:33 Morphine 2 Mg/1 Ml Inj IV 2 mg Q4H PRN Administration Pain, Moderate (4-6) Ondansetron HCl 4 mg 05/07/22 05:25 Ondansetron 4 Mg/2 Ml Inj IV Q8H PRN Nausea And Vomiting Simple Syrup 15 ml 05/09/22 08:00 Simple Syrup 15 Ml FEEDTUBE PRN PRN Hypoglycemia Simple Syrup 30 ml 05/09/22 08:00 Simple Syrup 15 Ml FEEDTUBE PRN PRN Hypoglycemia Sodium Bicarbonate 325 mg 05/09/22 08:00 Sodium Bicarbonate 325 Mg Tab FEEDTUBE PRN PRN For Clogged Feeding Tube Sodium Chloride 10 ml 05/07/22 05:25 Sodium Chloride 0.9% 10 Ml Flush Syringe IV PRN PRN LINE FLUSH Sodium Chloride 10 ml 05/07/22 10:00 05/11/22 22:45 Sodium Chloride 0.9% 10 Ml Flush Syringe IV 10 ml BID RIKI Administration Nutrition/Malnutrition Assess - Dietary Evaluation Nutrition/Malnutrition Findings: Nutrition Notes Start: 05/08/22 15:56 Freq: Status: Active Protocol: Document 05/11/22 13:29 AIMEE (Rec: 05/11/22 13:49 AIMEE [id number]) Nutrition Notes Initial or Follow up Brief Note Current Diagnosis Acute Kidney Injury,CKD (stage V CKD),Sepsis,Hypertension, Stroke Other Pertinent Diagnosis Mertabolic Encephalopathy & Acidosis, UTI, R-Lung Mass. Current Diet NPO (since 05/07 10:41). Labs/Tests 05/11: K 3.5, BUN 64, Crea 3.6 , Glu 156, Ca 7.7. Pertinent Medications 05/11: Nutritionally unremarkable. Height 5 ft 4 in Weight 60.3 kg [place] Body Weight (kg) 54.54 BMI 22.8 Weight change and time frame 4.3 Kg body weight gain in 2 days reported. Weight Status Appropriate Subjective/Other Information RD consult for routine F/U on dietary advancement. Pt continues on NPO; ordered TF on 05/09, but multiple failed attempts to insert NG-tube, made it impossible. Family is discussing PEG-tube placement, will have a response on 05/12 , according to RN over the phone. Pt is now DNR status, according to Progress notes. Pt is on Room Air, O2 saturation @ 100%, according to Physical Assessment History notes. Pt failed swallow assessment on 05/10, according to Swallow Screen notes. Percent of energy/protein needs met: Pt is currently on NPO. #1 Nutrition Diagnosis Swallowing difficulty Diagnosis Progress(for reassessment Continues documentation) Nutrition Intervention Follow-Up By: 05/13/22 Additional Comments PEG-tube placement? HD?
[2022-05-12] MEDS: ASPIRIN 81 MG TAB CHEW FEEDTUBE SCH (11:00)
[2022-05-12] MEDS: FAMOTIDINE 20 MG/2 ML INJ IV SCH (11:00)
--- NOTE | 2022-05-12 14:12 | Progress Note ---
Assessment and Plan Assessment: Severe Renal Failure secondary to prerenal etiology vs ATN vs CKD stage 5 Sepsis Hypotension Altered Mental Status Acidosis CVA Plan: Renal labs reviewed. Serum creatinine 3.6 today, yesterday's was 3.9, UOP 420 ml Baseline serum creatinine unknown 24 hour urine collection for creatinine clearance- collection end at 12 noon today Renal ultrasound reviewed- Medical renal disease. No hydronephrosis. Urine lytes reviewed. Has proteinuria. No urine eosinophils. CXR-lung mass otherwise clear S/P NS IVF Avoid nephrotoxic agents Obtain daily weights Renally dose medications Monitor I/O's daily Monitor renal function closely No urgent indication for HD today, may need it in the near future, patient's son aware Plan of care reviewed by Dr. Muller Subjective Date of service: 05/12/22 Principal diagnosis: 05/08/2022 Interval history: Patient seen lying in bed. Son at bedside. States he is travelling back to [facility]. Objective - Vital Signs Vital signs: Vital Signs - 12hr 05/12/22 05/12/22 05/12/22 02:30 03:00 03:30 Temperature Pulse Rate 92 H 98 H 93 H Pulse Rate [ From Monitor] Respiratory 19 16 12 Rate Blood Pressure 79/49 80/51 75/45 O2 Sat by Pulse 99 100 100 Oximetry 05/12/22 05/12/22 05/12/22 03:42 04:00 04:30 Temperature 97.7 F Pulse Rate 88 94 H Pulse Rate [ From Monitor] Respiratory 21 17 Rate Blood Pressure 64/35 60/38 O2 Sat by Pulse 100 100 Oximetry 05/12/22 05/12/22 05/12/22 05:00 05:30 06:00 Temperature Pulse Rate 92 H 83 110 H Pulse Rate [ 110 H From Monitor] Respiratory 21 12 22 Rate Blood Pressure 65/37 59/27 97/65 O2 Sat by Pulse 100 98 100 Oximetry 05/12/22 05/12/22 05/12/22 06:20 06:30 07:00 Temperature Pulse Rate 113 H 116 H 113 H Pulse Rate [ From Monitor] Respiratory 18 13 Rate Blood Pressure 96/67 102/73 O2 Sat by Pulse 100 99 Oximetry 05/12/22 05/12/22 05/12/22 07:30 07:31 08:00 Temperature 98.9 F Pulse Rate 119 H 109 H Pulse Rate [ From Monitor] Respiratory 12 23 Rate Blood Pressure 116/73 105/73 O2 Sat by Pulse 100 100 Oximetry 05/12/22 05/12/22 05/12/22 08:30 09:00 09:30 Temperature Pulse Rate 120 H 111 H 108 H Pulse Rate [ From Monitor] Respiratory 11 L 16 20 Rate Blood Pressure 111/63 111/75 105/71 O2 Sat by Pulse 100 100 100 Oximetry 05/12/22 05/12/22 05/12/22 10:00 10:30 11:00 Temperature Pulse Rate 112 H 110 H 97 H Pulse Rate [ 86 From Monitor] Respiratory 27 H 20 18 Rate Blood Pressure 103/69 95/68 96/69 O2 Sat by Pulse 98 100 99 Oximetry 05/12/22 05/12/22 05/12/22 11:30 11:34 12:00 Temperature 98.7 F Pulse Rate 115 H 109 H Pulse Rate [ From Monitor] Respiratory 28 H 24 Rate Blood Pressure 74/49 76/45 O2 Sat by Pulse 97 100 Oximetry 05/12/22 05/12/22 05/12/22 12:30 13:00 13:30 Temperature Pulse Rate 115 H 103 H 111 H Pulse Rate [ From Monitor] Respiratory 22 24 20 Rate Blood Pressure 71/38 59/38 63/41 O2 Sat by Pulse 100 96 96 Oximetry - General Appearance General appearance: well-developed, appears stated age EENT: ATNC Neck: no JVD, supple Respiratory: Present: Decreased Breath Sounds Cardiology: S1S2 Gastrointestinal: normoactive bowel sounds Integumentary: warm and dry Neurologic: other (Confused) Musculoskeletal: other (No edema) - Lab 05/08/22 05:35 05/11/22 06:00 Most recent lab results ABG pH 7.546 pH Units (7.350-7.450) H 05/10/22 09:00 ABG pCO2 26.3 mm Hg 05/10/22 09:00 ABG pO2 104.0 mm Hg (80.0-90.0) H 05/10/22 09:00 ABG HCO3 22.3 mmol/L (20.0-26.0) 05/10/22 09:00 ABG O2 Saturation 98.2 % (95.0-99.0) 05/10/22 09:00 Calcium 7.7 mg/dL (8.4-10.2) L 05/11/22 06:00 Phosphorus 4.40 mg/dL (2.5-4.5) 05/08/22 04:00 Magnesium 1.80 mg/dL (1.7-2.3) 05/10/22 04:34 Medications & Allergies - Medications Allergies/Adverse Reactions: Allergies No Known Allergies Allergy (Verified 05/07/22 02:32) Active Medications: Generic Name Dose Route Start Last Admin Trade Name Freq PRN Reason Stop Dose Admin Acetaminophen 650 mg 05/07/22 05:25 Acetaminophen 325 Mg Tab PO Q4H PRN Pain MILD(1-3)/Fever >100.5/ROSAS Albuterol 2.5 mg 05/07/22 05:31 Albuterol 2.5 Mg/3 Ml Nebu IH Q3HRT PRN Shortness Of Breath Lipase/Protease/Amylase 1 each 05/09/22 08:00 Lipase 10,500/Protease 25,000/Amylase 43,750 (Units) Dr Dunne FEEDTUBE PRN PRN For Clogged Feeding Tube Aspirin 81 mg 05/09/22 10:00 05/12/22 11:00 Aspirin 81 Mg Tab Chew FEEDTUBE Not Given QDAY RIKI Atorvastatin Calcium 40 mg 05/07/22 22:00 05/11/22 22:45 Atorvastatin 40 Mg Tab PO Not Given QHS RIKI Dextrose 50 ml 05/10/22 13:19 Dextrose 50% In Water (25gm) 50 Ml Syringe IV Q30MIN PRN Hypoglycemia Protocol Famotidine 20 mg 05/07/22 10:00 05/12/22 11:00 Famotidine 20 Mg/2 Ml Inj IV 20 mg QAM RIKI Administration Dextrose/Sodium Chloride 1,000 mls @ 100 mls/hr 05/12/22 05:00 05/12/22 11:04 D5/0.45ns IV 100 mls/hr DIRECT RIKI Administration NORepinephrine/NS 8 MG-250 ML 8 mg in 250 mls @ 11.306 mls/hr 05/12/22 06:00 05/12/22 13:00 Norepinephrine/Ns 8 Mg-250 Ml (Double Conc) IV 0.11 mcg/kg/min TITRATE RIKI 12.437 mls/hr Titration Protocol 0.1 MCG/KG/MIN Insulin Human Lispro 0 unit 05/10/22 18:00 05/12/22 11:49 Insulin Lispro 100 Unit/Ml SUB-Q Not Given Q6HR [facility] Protocol Morphine Sulfate 2 mg 05/07/22 05:25 05/10/22 18:33 Morphine 2 Mg/1 Ml Inj IV 2 mg Q4H PRN Administration Pain, Moderate (4-6) Ondansetron HCl 4 mg 05/07/22 05:25 Ondansetron 4 Mg/2 Ml Inj IV Q8H PRN Nausea And Vomiting Simple Syrup 15 ml 05/09/22 08:00 Simple Syrup 15 Ml FEEDTUBE PRN PRN Hypoglycemia Simple Syrup 30 ml 05/09/22 08:00 Simple Syrup 15 Ml FEEDTUBE PRN PRN Hypoglycemia Sodium Bicarbonate 325 mg 05/09/22 08:00 Sodium Bicarbonate 325 Mg Tab FEEDTUBE PRN PRN For Clogged Feeding Tube Sodium Chloride 10 ml 05/07/22 05:25 Sodium Chloride 0.9% 10 Ml Flush Syringe IV PRN PRN LINE FLUSH Sodium Chloride 10 ml 05/07/22 10:00 05/12/22 11:00 Sodium Chloride 0.9% 10 Ml Flush Syringe IV 10 ml BID RIKI Administration
[2022-05-12 15:20] LABS: Creatinine 24 Hour,Urine 0.2 (0.8-2.8); Creatinine,Urine 104.5 mg/dL (0.1-20.0)
--- NOTE | 2022-05-12 15:56 | Progress Note ---
Subjective Date of service: 05/12/22 Principal diagnosis: 05/08/2022 Interval history: Spoke with the patients son, based upon the workup and condition i recommend placement rather than hospice care, the patients son wants to proceed with placement , he does not want hospice care at present , PEG is the next step ,neurolgical prognosis is guarded . Dr. Castorena Objective - Vital Sign Vital Signs - 12hr 05/12/22 05/12/22 05/12/22 04:00 04:30 05:00 Temperature Pulse Rate 88 94 H 92 H Pulse Rate [ From Monitor] Respiratory 21 17 21 Rate Blood Pressure 64/35 60/38 65/37 O2 Sat by Pulse 100 100 100 Oximetry 05/12/22 05/12/22 05/12/22 05:30 06:00 06:20 Temperature Pulse Rate 83 110 H 113 H Pulse Rate [ 110 H From Monitor] Respiratory 12 22 Rate Blood Pressure 59/27 97/65 O2 Sat by Pulse 98 100 Oximetry 05/12/22 05/12/22 05/12/22 06:30 07:00 07:30 Temperature Pulse Rate 116 H 113 H 119 H Pulse Rate [ From Monitor] Respiratory 18 13 12 Rate Blood Pressure 96/67 102/73 116/73 O2 Sat by Pulse 100 99 100 Oximetry 05/12/22 05/12/22 05/12/22 07:31 08:00 08:30 Temperature 98.9 F Pulse Rate 109 H 120 H Pulse Rate [ From Monitor] Respiratory 23 11 L Rate Blood Pressure 105/73 111/63 O2 Sat by Pulse 100 100 Oximetry 05/12/22 05/12/22 05/12/22 09:00 09:30 10:00 Temperature Pulse Rate 111 H 108 H 112 H Pulse Rate [ 86 From Monitor] Respiratory 16 20 27 H Rate Blood Pressure 111/75 105/71 103/69 O2 Sat by Pulse 100 100 98 Oximetry 05/12/22 05/12/22 05/12/22 10:30 11:00 11:30 Temperature Pulse Rate 110 H 97 H 115 H Pulse Rate [ From Monitor] Respiratory 20 18 28 H Rate Blood Pressure 95/68 96/69 74/49 O2 Sat by Pulse 100 99 97 Oximetry 05/12/22 05/12/22 05/12/22 11:34 12:00 12:30 Temperature 98.7 F Pulse Rate 109 H 115 H Pulse Rate [ From Monitor] Respiratory 24 22 Rate Blood Pressure 76/45 71/38 O2 Sat by Pulse 100 100 Oximetry 05/12/22 05/12/22 05/12/22 13:00 13:30 14:00 Temperature Pulse Rate 103 H 111 H 112 H Pulse Rate [ 94 H From Monitor] Respiratory 24 20 28 H Rate Blood Pressure 59/38 63/41 79/59 O2 Sat by Pulse 96 96 100 Oximetry 05/12/22 05/12/22 14:30 15:00 Temperature Pulse Rate 118 H 120 H Pulse Rate [ From Monitor] Respiratory 17 25 H Rate Blood Pressure 69/42 88/52 O2 Sat by Pulse Oximetry - Laboratory Findings CBC and BMP: 05/08/22 05:35 05/11/22 06:00 Abnormal Lab Findings: Abnormal Labs 05/07/22 05/07/22 05/07/22 03:40 03:40 03:40 WBC 11.6 H Hgb Hct MCH 26 L RDW 21.2 H Plt Count Lymph % (Auto) 9.5 L Lymph # (Auto) 1.1 L Seg Neutrophils % 85.1 H Seg Neutrophils # 9.9 H PT 17.8 H INR 1.31 H ABG pH ABG pO2 ABG Hemoglobin Sodium 133 L Potassium Chloride 92.0 L Carbon Dioxide 15 L BUN 67 H Creatinine 5.1 H Glucose 105 H POC Glucose Lactic Acid Calcium AST 70 H Ammonia Prealbumin Triglycerides Cholesterol HDL Cholesterol Vitamin B1 Folate Urine Creatinine Ur Creatinine 24 Hour 05/07/22 05/07/22 05/07/22 03:40 03:40 05:50 WBC Hgb Hct MCH RDW Plt Count Lymph % (Auto) Lymph # (Auto) Seg Neutrophils % Seg Neutrophils # PT INR ABG pH ABG pO2 ABG Hemoglobin Sodium Potassium Chloride Carbon Dioxide BUN Creatinine Glucose POC Glucose Lactic Acid 3.30 H* 2.60 H* Calcium AST Ammonia 17.0 L Prealbumin Triglycerides Cholesterol HDL Cholesterol Vitamin B1 Folate Urine Creatinine Ur Creatinine 24 Hour 05/07/22 05/07/22 05/07/22 06:00 09:53 09:53 WBC Hgb Hct MCH RDW Plt Count Lymph % (Auto) Lymph # (Auto) Seg Neutrophils % Seg Neutrophils # PT INR ABG pH ABG pO2 ABG Hemoglobin Sodium Potassium Chloride Carbon Dioxide BUN Creatinine Glucose POC Glucose Lactic Acid Calcium AST Ammonia Prealbumin 0.121 L Triglycerides 344 H Cholesterol 220 H HDL Cholesterol 36 L Vitamin B1 Folate 2.86 L Urine Creatinine Ur Creatinine 24 Hour 05/07/22 05/08/22 05/08/22 09:53 04:00 05:35 WBC Hgb 9.7 L Hct 29.8 L MCH 26 L RDW 21.4 H Plt Count 126 L Lymph % (Auto) 6.7 L Lymph # (Auto) 0.7 L Seg Neutrophils % 89.1 H Seg Neutrophils # 9.4 H PT INR ABG pH ABG pO2 ABG Hemoglobin Sodium Potassium Chloride Carbon Dioxide 10 L BUN 76 H Creatinine 4.9 H Glucose 107 H POC Glucose Lactic Acid Calcium AST Ammonia Prealbumin Triglycerides Cholesterol HDL Cholesterol Vitamin B1 <6 L Folate Urine Creatinine Ur Creatinine 24 Hour 05/09/22 05/09/22 05/10/22 07:11 23:10 04:34 WBC Hgb Hct MCH RDW Plt Count Lymph % (Auto) Lymph # (Auto) Seg Neutrophils % Seg Neutrophils # PT INR ABG pH ABG pO2 ABG Hemoglobin Sodium Potassium 3.0 L D 3.3 L Chloride 107.1 H 107.7 H Carbon Dioxide 9 L* 17 L D 19 L BUN 83 H 75 H 73 H Creatinine 5.2 H 4.1 H 3.9 H Glucose 162 H 174 H POC Glucose Lactic Acid Calcium 8.1 L AST Ammonia Prealbumin Triglycerides Cholesterol HDL Cholesterol Vitamin B1 Folate Urine Creatinine Ur Creatinine 24 Hour 05/10/22 05/10/22 05/11/22 09:00 17:41 00:14 WBC Hgb Hct MCH RDW Plt Count Lymph % (Auto) Lymph # (Auto) Seg Neutrophils % Seg Neutrophils # PT INR ABG pH 7.546 H ABG pO2 104.0 H ABG Hemoglobin 7.1 L Sodium Potassium Chloride Carbon Dioxide BUN Creatinine Glucose POC Glucose 130 H 138 H Lactic Acid Calcium AST Ammonia Prealbumin Triglycerides Cholesterol HDL Cholesterol Vitamin B1 Folate Urine Creatinine Ur Creatinine 24 Hour 05/11/22 05/11/22 05/11/22 05:34 06:00 10:56 WBC Hgb Hct MCH RDW Plt Count Lymph % (Auto) Lymph # (Auto) Seg Neutrophils % Seg Neutrophils # PT INR ABG pH ABG pO2 ABG Hemoglobin Sodium Potassium 3.5 L Chloride Carbon Dioxide BUN 64 H Creatinine 3.6 H Glucose 156 H POC Glucose 161 H Lactic Acid Calcium 7.7 L AST Ammonia Prealbumin Triglycerides Cholesterol HDL Cholesterol Vitamin B1 Folate Urine Creatinine 104.5 H Ur Creatinine 24 Hour 0.2 L 05/11/22 05/11/22 05/12/22 11:58 16:19 00:18 WBC Hgb Hct MCH RDW Plt Count Lymph % (Auto) Lymph # (Auto) Seg Neutrophils % Seg Neutrophils # PT INR ABG pH ABG pO2 ABG Hemoglobin Sodium Potassium Chloride Carbon Dioxide BUN Creatinine Glucose POC Glucose 143 H 110 H 274 H Lactic Acid Calcium AST Ammonia Prealbumin Triglycerides Cholesterol HDL Cholesterol Vitamin B1 Folate Urine Creatinine Ur Creatinine 24 Hour
--- NOTE | 2022-05-12 17:09 | Procedure Note ---
Date of procedure: 05/12/22 Pre-op diagnosis: Acute CVA (cerebral vascular accident) large acute right [employer] NURSE distribution Post-op diagnosis: same Procedure: Right Internal Jugular Central Line Placement Patient was evaluated and required Central line placement due to pressor requirement Informed consent obtained from patient's son. Consent signed, witnessed, and placed in the chart A time-out was completed verifying correct patient, procedure, site, and positioning. Hand hygiene were performed immediately prior to the procedure and sterile technique was used throughout the procedure. The patient's right neck was prepped with chlorhexidine scrub then draped in a sterile fashion. 1% Lidocaine was used to anesthetize the surrounding skin area. Ultrasound was utilized to localize the right internal jugular vein without difficulty. Then the right internal jugular vein was accessed using ultrasound guidance and a triple lumen catheter was introduced using the Seldinger technique. The catheter threaded smoothly over the guidewire and advanced easily into the vein and brisk blood return was observed from each lumen. Each lumen were flushed and clamped, then the catheter was sutured in place, a Biopatch was placed at the insertion site, and covered with a sterile dressing. Patient tolerated the procedure well, no signs of any adverse reaction noted. CXR shows good placement without PTX, CVC is okay to use. Total Time Spent with Patient (Minutes): 60 minutes Anesthesia: local Surgeon: CASIE GUTIÉRREZ Estimated blood loss: minimal Condition: critical Disposition: ICU
--- NOTE | 2022-05-12 17:22 | XRay Report ---
CHEST 1 VIEW 05/12/2022 5:06 PM INDICATION / CLINICAL INFORMATION: central line placement. COMPARISON: 05/07/2022 FINDINGS: SUPPORT DEVICES: Tip of the central venous line projects the level of the junction of the superior ve na cava and right atrium. HEART / MEDIASTINUM: No significant abnormality. LUNGS / PLEURA: No acute pulmonary abnormality. No pneumothorax. ADDITIONAL FINDINGS: No significant additional findings. IMPRESSION: 1. Central line in expected position. Signer Name: Pedro Ocampo MD Signed: 05/12/2022 5:18 PM Workstation Name: [id number]
[2022-05-12 17:37] LABS: Albumin 2.7 g/dL (3.8-4.8); Gamma Globulin 0.6 g/dL (0.8-1.7)
--- NOTE | 2022-05-12 20:18 | Cat Scan Report ---
CT head/brain wo con INDICATION: changes to cva. TECHNIQUE: CT head. All CT scans at this location are performed using CT dose reduction for ALARA by means of automated exposure control. COMPARISON: 05/08/2022 brain MRI. FINDINGS: There is a known evolving infarction involving the right occipital lobe, right medial temporal lobe, and right thalamus. No hemorrhagic conversion. No new infarction identified. No herniation. No hydroc ephalus. IMPRESSION: 1. Evolving right [employer] distribution infarction. Signer Name: Ezequiel Frias MD Signed: 05/12/2022 8:14 PM Workstation Name: [id number]
--- NOTE | 2022-05-12 20:40 | Gastroenterology Consultation ---
History of Present Illness - Reason for Consult Consult date: 05/12/22 PEG placement Requesting physician: DOMONIQUE FLORES - History of Present Illness This is a 72-year-old female with history of Alzheimer dementia, CKD admitted for altered mental status. Hospital course complicated with subacute CVA, acute metabolic encephalopathy. GI consulted for PEG tube placement. There have been multiple attempts for Dobbhoff placement but unsuccessful per nursing. Patient also noted to be hypotensive and tachycardic this afternoon and transferred to the ICU and started on pressors. Patient unable to give any history. No family by bedside. Medication list reviewed. Past History Past Medical History: renal failure (Allergy med dementia), other (see hpi;) Past Surgical History: No surgical history Social history: no significant social history Family history: hypertension Medications and Allergies Allergies Allergy/AdvReac Type Severity Reaction Status Date / Time No Known Allergies Allergy Verified 05/07/22 02:32 Active Meds: Active Medications Acetaminophen (Acetaminophen 325 Mg Tab) 650 mg PO Q4H PRN PRN Reason: Pain MILD(1-3)/Fever >100.5/ROSAS Albuterol (Albuterol 2.5 Mg/3 Ml Nebu) 2.5 mg IH Q3HRT PRN PRN Reason: Shortness Of Breath Lipase/Protease/Amylase (Lipase 10,500/Protease 25,000/Amylase 43,750 (Units) Dr Dunne) 1 each FEEDTUBE PRN PRN PRN Reason: For Clogged Feeding Tube Aspirin (Aspirin 81 Mg Tab Chew) 81 mg FEEDTUBE QDAY [facility] Last Admin: 05/12/22 11:00 Dose: Not Given Atorvastatin Calcium (Atorvastatin 40 Mg Tab) 40 mg PO QHS [facility] Last Admin: 05/11/22 22:45 Dose: Not Given Dextrose (Dextrose 50% In Water (25gm) 50 Ml Syringe) 50 ml IV Q30MIN PRN; Protocol PRN Reason: Hypoglycemia Famotidine (Famotidine 20 Mg/2 Ml Inj) 20 mg IV QAM [facility] Last Admin: 05/12/22 11:00 Dose: 20 mg Dextrose/Sodium Chloride (D5/0.45ns) 1,000 mls @ 100 mls/hr IV DIRECT [facility] Last Admin: 05/12/22 11:04 Dose: 100 mls/hr NORepinephrine/NS 8 MG-250 ML (Norepinephrine/Ns 8 Mg-250 Ml (Double Conc)) 8 mg in 250 mls @ 11.306 mls/hr IV TITRATE RIKI; Protocol Last Titration: 05/12/22 18:33 Dose: 0.26 mcg/kg/min, 29.396 mls/hr Insulin Human Lispro (Insulin Lispro 100 Unit/Ml) 0 unit SUB-Q Q6HR RIKI; Protocol Last Admin: 05/12/22 18:06 Dose: 1 unit Morphine Sulfate (Morphine 2 Mg/1 Ml Inj) 2 mg IV Q4H PRN PRN Reason: Pain, Moderate (4-6) Last Admin: 05/10/22 18:33 Dose: 2 mg Ondansetron HCl (Ondansetron 4 Mg/2 Ml Inj) 4 mg IV Q8H PRN PRN Reason: Nausea And Vomiting Simple Syrup (Simple Syrup 15 Ml) 15 ml FEEDTUBE PRN PRN PRN Reason: Hypoglycemia Simple Syrup (Simple Syrup 15 Ml) 30 ml FEEDTUBE PRN PRN PRN Reason: Hypoglycemia Sodium Bicarbonate (Sodium Bicarbonate 325 Mg Tab) 325 mg FEEDTUBE PRN PRN PRN Reason: For Clogged Feeding Tube Sodium Chloride (Sodium Chloride 0.9% 10 Ml Flush Syringe) 10 ml IV PRN PRN PRN Reason: LINE FLUSH Sodium Chloride (Sodium Chloride 0.9% 10 Ml Flush Syringe) 10 ml IV BID [facility]IKI Last Admin: 05/12/22 11:00 Dose: 10 ml Review of Systems - Review of Systems ROS unobtainable: due to mental status Exam - Constitutional Vital Signs: Temp Pulse Resp BP Pulse Ox 98.8 F 114 H 31 H 94/63 100 05/12/22 19:00 05/12/22 20:26 05/12/22 20:00 05/12/22 20:00 05/12/22 20:00 General appearance: mild distress - Respiratory Respiratory effort: normal - Cardiovascular Rhythm: regular Heart Sounds: Present: S1 & S2 Extremities: No edema - Gastrointestinal General gastrointestinal: Present: soft, non-tender, non-distended - Integumentary Integumentary: Present: clear, warm - Neurologic Neurological: disoriented - Allied health notes Allied health notes reviewed: nursing - Labs CBC & Chem 7: 05/08/22 05:35 05/11/22 06:00 Lab Results: Laboratory Results - last 24 hr 05/07/22 05/09/22 05/11/22 09:53 07:11 10:56 POC Glucose Serum Total Protein 5.6 L Albumin 2.7 L Gkpif-6-Fxexiyviq 0.7 H Pmguc-6-Lmjscovrs 0.9 Beta Globulins 0.4 Gamma Globulins 0.6 L Abnorm Protein Band 1 see below PEP Interpretation see below H Vitamin B1 <6 L Urine Total Volume 215.0 Urine Creatinine 104.5 H Ur Creatinine 24 Hour 0.2 L 05/12/22 05/12/22 05/12/22 00:18 05:42 17:04 POC Glucose 274 H 97 191 H Serum Total Protein Albumin Azozf-6-Jttanrlax Qdayi-7-Ekuecfjbn Beta Globulins Gamma Globulins Abnorm Protein Band 1 PEP Interpretation Vitamin B1 Urine Total Volume Urine Creatinine Ur Creatinine 24 Hour - Imaging X-ray: report reviewed Assessment and Plan # AMS # Dysphagia -Acute metabolic encephalopathy -Evaluated by speech and recommended to have alternant means of nutrition. -Currently started on low-dose of pressors for hypotension and moved to ICU. -Patient currently not medically stable for EGD and PEG tube placement at this time. -Please call us back when patient is more medically stable. - Patient Problems (1) Acute metabolic encephalopathy Current Visit: Yes Status: Acute
[2022-05-13] MEDS: INSULIN LISPRO 100 UNIT/ML SUB-Q SCH ×2 (00:02→06:03)
[2022-05-13 00:31] LABS: Calcium 7.4 mg/dL (8.4-10.2)
[2022-05-13] MEDS: POTASSIUM CHLORIDE 20 MEQ 20 MEQ/100 ML BAG IV SCH ×2 (01:20→02:11)
[2022-05-13] MEDS: NORepinephrine/NS 8 MG-250 ML 8 MG/250 ML INFUS..BTL IV SCH (02:11)
[2022-05-13] MEDS: MORPHINE 2 MG/1 ML INJ IV PRN (03:35)
[2022-05-13 05:16] LABS: Calcium 7.2 mg/dL (8.4-10.2)
[2022-05-13] MEDS: D5W/0.45% NACL 1,000 ML IV SCH (06:39)
--- NOTE | 2022-05-13 07:38 | Event Note ---
Date: 05/13/22 Called to see patient for unresponsiveness and reading of asystole on bedside monitor. On exam the patient did not respond to verbal or physical stimuli. Absent heart and breath sounds.Absent peripheral pulses. Pupils are fixed and dilated. Patient pronounced at 0717. Attempted to call son Taz Diaz x2, no response. Voicemail left with callback number to call back to ICU.
--- NOTE | 2022-05-13 08:06 | Death Summary ---
Summary - Providers Date of service: 05/13/22 Consults: 05/07/22 Consult to Physician [CONS] Routine Comment: Consulting Provider: ARSALAN VASQUEZ Physician Instructions: Reason For Exam: cva 05/07/22 05:31 Consult to Physician [CONS] Routine Comment: Consulting Provider: RAMONE WIGGINS Physician Instructions: Reason For Exam: frantz 05/07/22 05:43 Occupational Therapy Evaluate and Treat [CONS] Routine Comment: Reason For Exam: Neuro deficits Physical Therapy Evaluation and Treat [CONS] Routine Comment: Reason For Exam: Neuro deficits 05/07/22 10:41 Speech Therapy Evaluation and Treat [CONS] Stat Reason For Exam: FAILED SWALLOW SCREEN 05/09/22 08:00 Consult to Dietitian/Nutrition [CONS] Routine Physician Instructions: Assess nutrtn needs, initiate, modify, manage TF Reason For Exam: Reason for Consult: Write/Manage Tube Feeding Reason for Consult: Write/Manage Tube Feeding 05/12/22 16:22 Consult to Physician [CONS] Routine Comment: Consulting Provider: ARSLAN IZAGUIRRE Physician Instructions: Reason For Exam: PEG tube 05/12/22 16:58 Consult to Physician [CONS] Routine Comment: Consulting Provider: LASHANDA IRENE Physician Instructions: Reason For Exam: on levophed, bp management Attending: DOMONIQUE FLORES MD - summary Date of admission: 05/07/22 05:25 Date of : 05/13/22 Reason for admission: large acute right [employer]OWN CLERK distribution CVA and FRANTZ Disposition: 72-year-old female with a history of Alzheimer dementia and most likely chronic kidney disease was brought in by EMS with altered mental status that was noticed after patient was found sitting on the toilet bowl for about 7 hours covered in feces. No fever or chills reported. Patient noted to be hypotensive on presentation. No other modifying or associated factors reported. In the emergency room patient is found to have BUN of 67, creatinine 5.1, lactic acid 3.30, WBC 11.6, CT scan of the head shows large area of edema noted throughout the right occipital lobe most likely representing subacute CVA and old lacunar infarct within the right basal ganglia and right thalamus. Patient was initially admitted to the floor for acuet CVA and FRANTZ, neurology and Nephrology were consulted. While on the floor, patient menation continue to worsen, patient also failed swallow eval and multiple attempts at inserting a DHT for nutrition was unsuccessful. MRI brain confirmed large acute to subacute ischemic infarct at the right TOWN CLERK distributon and chronic ischemic changes in the white matter. Chest x-ray shows right upper lobe 1.3 cm pulmonary opacity possibly representing lung mass. CT chest was completed and showed no evidence of lung mass, but revealed mild chronic interstitial changes in both lungs and small pneumomediastinum. 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 Echocardiogram revealed an EF of 50-55 percent and no PFO. On 05/10/22 patient decompensated and became hypotensive and was transferred to the [facility]. Patient's son visited at the time, patient's condition and overall poor prognosis were discussed. Patient's son opted for AND/DNR status and was considering possible inpatient hospice at the time but wanted to wait on Neurology recommendations before making a decision. On 05/12/2022, patient had a discussion with Neurology who recommended SNF with trach peg instead of hospice. Patient's son then opted to maintain AND/DNR status, but wanted all aggressive management with pressors/medication but NO CPR OR INTUBATION. Patient was then transferred to ICU for vasopressor initiation due to persistent hypotension. RIJ CVC was inserted and Levophed gtt was initiated. CCM was consulted for ICU management and GI consulted for possible PEG-tube placement. On 05/13/2022, patient was found unresponsiveness and reading asystole on bedside monitor. On exam the patient did not respond to verbal or physical stimuli. Absent heart and breath sounds. Absent peripheral pulses. Pupils were fixed and dilated. Patient pronounced on 05/13/2022 at 0717. Patient's son was contacted via phone and was informed of patient , condolences offered. --Acute CVA (cerebral vascular accident) large acute right T[employer] CLERK distribution CVA --Acute metabolic encephalopathy --Hypotension/borderline --FRANTZ (acute kidney injury) --Severe metabolic acidosis --Alzheimer's dementia --Right lung mass --Sepsis; Probably UTI
[2022-05-13 08:26] VITALS: BP 207/176
[2022-05-14 14:32] LABS: Vitamin D, 25-OH, D2 SEE SCANNED RESULT
[2022-05-14 17:48] LABS: ANA Screen, IFA Negative (Negative)
[2022-05-15 11:49] LABS: Myeloperoxidase Antibody <1.0 AI (<1.0)
== END 2022-05-13 10:00 | DRG 871 ==
LOC: ED 23:44 → 4A 05-07 05:25 → IMCU 05-10 02:18 → CC1 05-12 17:37
PROVIDERS: ADMIT Hospitalist; ATTEND Internal Medicine
PROC: 4A033R1 Measurement of Arterial Saturation, Peripheral, Percutaneous Approach (ICD-10-PCS; principal; 2022-05-10)
PROC: 02HV33Z Insertion of Infusion Device into Superior Vena Cava, Percutaneous Approach (ICD-10-PCS; 2022-05-12)
PROC: B548ZZA Ultrasonography of Superior Vena Cava, Guidance (ICD-10-PCS; 2022-05-12)
DX: A41.9 Sepsis, unspecified organism (principal); G93.41 Metabolic encephalopathy; I63.531 Cerebral infarction due to unspecified occlusion or stenosis of right posterior cerebral artery; N17.9 Acute kidney failure, unspecified; I69.954 Hemiplegia and hemiparesis following unspecified cerebrovascular disease affecting left non-dominant side; N39.0 Urinary tract infection, site not specified; R91.8 Other nonspecific abnormal finding of lung field; G30.9 Alzheimer's disease, unspecified; F02.80 Dementia in other diseases classified elsewhere, unspecified severity, without behavioral disturbance, psychotic disturbance, mood disturbance, and anxiety; Z66 Do not resuscitate; R13.10 Dysphagia, unspecified; Z82.49 Family history of ischemic heart disease and other diseases of the circulatory system
CPT/HCPCS: 36415; 36600; 70450; 70544; 70551; 71045; 71250; 72125; 74018; 76770; 80048; 80053; 80061; 80074; 80307; 81001; 82140; 82306; 82525; 82570; 82607; 82747; 82803; 82962; 83735; 84100; 84134; 84165; 84425; 84443; 85025; 85610; 85730; 86021; 86038; 86160; 87040; 87086; 89050; 93005; 93306; 94640; 94644; 94760; 95819; 96374; 96375; 99285; G0378; J2354; J3490; J7070; Q9967; C8929; J0692; J1815; J2270; J3480; J7030; J7040